=== PATIENT | male | born 1990 | race Caucasian/White ===

== ENCOUNTER 2018-10-17 14:42 | Emergency (ER) | payer MEDICAID, OTHER ==
[2018-10-17] MEDS ORDERED: Sodium Chloride 0.9% 1000 ML 1,000 ML ONE ×3 (14:53→15:27)
[2018-10-17] MEDS ORDERED: Sodium Chloride 0.9% 1000 ML 2,000 ML IV STA (14:54)
[2018-10-17] MEDS ORDERED: Zofran 4 MG/2 ML VIAL IV ONE ×2 (14:54→16:52)
[2018-10-17] MEDS ORDERED: Zofran 4 MG/2 ML VIAL ONE ×2 (14:57→16:53)
--- NOTE | 2018-10-17 15:03 | ERPHSYRPT ---
- History of Present Illness Time Seen by Provider: 10/17/18 14:49 Historian: patient Exam Limitations: no limitations Physician History: Pt states, he has been working outdoors all week, trimming trees. He tried to catch up with oral fluids, but started c/o left flank pain, and vomited several times since this morning, his urine is very little and dark today. He denies vomiting blood, or coffee ground material, no fever, chills, no diarrhea or other complaints. Timing/Duration: hour(s) (6) Activities at Onset: rest Quality: cramping, sharpness Abdominal Pain Onset Location: flank (left) Severity of Pain-Max: severe Severity of Pain-Current: severe Modifying Factors: Improves With: nothing Associated Symptoms: nausea, vomiting Previous symptoms: no prior history Allergies/Adverse Reactions: Sulfa (Sulfonamide Antibiotics) [Sulfa(Sulfonamide Antibiotics)] Allergy (Mild, Verified 10/17/18 15:01) Hives Home Medications: No Home Meds [No Home Meds] 1 [facility] 04/10/14 [History] Hx Tetanus, Diphtheria Vaccination/Date Given: Yes Hx Influenza Vaccination/Date Given: No Hx Pneumococcal Vaccination/Date Given: No - Review of Systems Constitutional: No Symptoms Ears, Nose, & Throat: No Symptoms Respiratory: No Symptoms Cardiac: No Symptoms Abdominal/Gastrointestinal: Abdominal Pain, Nausea, Vomiting Genitourinary Symptoms: No Symptoms Musculoskeletal: Myalgias Skin: No Symptoms Neurological: No Symptoms All Other Systems: Reviewed and Negative - Past Medical History Pertinent Past Medical History: Yes Neurological History: No Pertinent History ENT History: No Pertinent History Cardiac History: No Pertinent History Respiratory History: No Pertinent History Endocrine Medical History: No Pertinent History Musculoskeletal History: No Pertinent History GI Medical History: No Pertinent History History: No Pertinent History Psycho-Social History: Attention Deficit Disorder Male Reproductive Disorders: No Pertinent History - Past Surgical History Past Surgical History: Yes Neuro Surgical History: No Pertinent History Cardiac: No Pertinent History Respiratory: No Pertinent History Gastrointestinal: No Pertinent History Genitourinary: No Pertinent History Musculoskeletal: Orthopedic Surgery Male Surgical History: No Pertinent History Other Surgical History: HYPOSPADIAS REPAIR - Social History Smoking Status: Current every day smoker How long have you smoked: YRS Exposure to second hand smoke: No Drug Use: marijuana Patient Lives Alone: No Significant Family History: no pertinent family hx - Nursing Vital Signs Nursing Vital Signs: Initial Vital Signs Temperature 97.9 F 10/17/18 14:46 Pulse Rate 65 10/17/18 14:46 Blood Pressure 137/78 10/17/18 14:46 O2 Sat by Pulse Oximetry 98 10/17/18 14:46 Pain Scale Pain Intensity 8 - Physical Exam General Appearance: mild distress Eye Exam: eyes nml inspection Ears, Nose, Throat Exam: normal ENT inspection, pharynx normal, moist mucous membranes Neck Exam: normal inspection, non-tender, supple, No JVD Respiratory Exam: normal breath sounds, lungs clear, airway intact Cardiovascular Exam: regular rate/rhythm, normal heart sounds, normal peripheral pulses, No murmur, No edema Gastrointestinal/Abdomen Exam: soft, normal bowel sounds, tenderness (LUQ, ), No distention, No mass, No guarding, No ecchymosis, No rebound, No hernia, No organomegaly Back Exam: normal inspection, CVA tenderness (left) Extremity Exam: normal inspection, No calf tenderness, No pedal edema Neurologic Exam: alert, oriented x 3, cooperative, normal mood/affect Skin Exam: normal color, warm, dry, No rash, No petechiae, No cyanosis, No diaphoresis Lymphatic Exam: No adenopathy SpO2 Interpretation: normal O2 Delivery: Room Air - Course Nursing assessment & vital signs reviewed: Yes EKG Interpreted by Me: RATE (60/min), NORMAL AXIS, NORMAL INTERVALS, NORMAL QRS , NORMAL ST-T - CT Exams Abdomen/Pelvis CT Interpretation: Tele-radiologist Report, Other (distal left ureteral stone, 3 mm, mildly obstructing, with mild hydronephrosis.) Ordered Tests: Active Orders 24 hr Category Date Time Status EKG-ER Only STAT Care 10/17/18 14:54 Active IV Insertion STAT Care 10/17/18 14:54 Active ABDOMEN AND PELVIS W/0 CONTRAS [CT] Stat Exams 10/17/18 15:21 Taken AMYLASE Stat Lab 10/17/18 15:09 Completed CBC W DIFF Stat Lab 10/17/18 15:09 Completed CK-Creatinine Phosphokinase Stat Lab 10/17/18 15:09 Completed CMP Stat Lab 10/17/18 15:09 Completed CULTURE,URINE Stat Lab 10/17/18 15:11 Received LIPASE Stat Lab 10/17/18 15:09 Completed Lactic Acid Stat Lab 10/17/18 14:54 Completed Lactic Acid Stat Lab 10/17/18 17:04 Ordered TROPONIN Q3H Lab 10/17/18 15:09 Completed TROPONIN Q3H Lab 10/17/18 18:00 Ordered TROPONIN Q3H Lab 10/17/18 21:00 Ordered TROPONIN Q3H Lab 10/18/18 00:00 Ordered TROPONIN Q3H Lab 10/18/18 03:00 Ordered UA W/RFX UR CULTURE Stat Lab 10/17/18 15:11 Completed Urine Triage Profile Stat Lab 10/17/18 15:11 Completed Medication Summary Generic Name Dose Route Start Last Admin Trade Name Freasad PRN Reason Stop Dose Admin Tamsulosin HCl 0.4 mg 10/18/18 17:46 Flomax 0.4 Mg PO 10/18/18 17:47 NOW ONE Discontinued Medications Generic Name Dose Route Start Last Admin Trade Name Watson PRN Reason Stop Dose Admin Fentanyl Citrate 75 mcg 10/17/18 16:51 10/17/18 17:12 Sublimaze 100 Mcg/2 Ml IV 10/17/18 16:52 75 mcg STAT ONE Administration Fentanyl Citrate Confirm 10/17/18 16:54 Sublimaze 100 Mcg/2 Ml Administered 10/17/18 16:55 Dose 100 mcg .ROUTE .STK-MED ONE Sodium Chloride 2,000 mls @ 999 mls/hr 10/17/18 14:54 10/17/18 16:42 Sodium Chloride 0.9% 1000 Ml IV 10/17/18 16:54 Infused .Q2H1M STA Infusion Sodium Chloride Confirm 10/17/18 14:53 Sodium Chloride 0.9% 1000 Ml Administered 10/17/18 14:54 Dose 1,000 mls @ ud .ROUTE .STK-MED ONE Sodium Chloride Confirm 10/17/18 15:19 Sodium Chloride 0.9% 1000 Ml Administered 10/17/18 15:20 Dose 1,000 mls @ ud .ROUTE .STK-MED ONE Sodium Chloride 1,000 mls @ 999 mls/hr 10/17/18 15:24 10/17/18 16:31 Sodium Chloride 0.9% 1000 Ml IV 10/17/18 16:24 Infused .Q1H1M STA Infusion Sodium Chloride Confirm 10/17/18 15:27 Sodium Chloride 0.9% 1000 Ml Administered 10/17/18 15:28 Dose 1,000 mls @ ud .ROUTE .STK-MED ONE Insulin Human Regular Confirm 10/17/18 15:19 Novolin R Administered 10/17/18 15:20 Dose 5 unit .ROUTE .STK-MED ONE Ondansetron HCl 4 mg 10/17/18 14:54 10/17/18 15:01 Zofran 4 Mg/2 Ml Vial IV 10/17/18 14:55 4 mg STAT ONE Administration Ondansetron HCl Confirm 10/17/18 14:57 Zofran 4 Mg/2 Ml Vial Administered 10/17/18 14:58 Dose 4 mg .ROUTE .STK-MED ONE Ondansetron HCl 4 mg 10/17/18 16:52 10/17/18 17:12 Zofran 4 Mg/2 Ml Vial IV 10/17/18 16:53 4 mg STAT ONE Administration Ondansetron HCl Confirm 10/17/18 16:53 Zofran 4 Mg/2 Ml Vial Administered 10/17/18 16:54 Dose 4 mg .ROUTE .STK-MED ONE Potassium Bicarbonate 25 meq 10/17/18 17:46 K-Lyte 25 Meq PO 10/17/18 17:47 STAT ONE Lab/Rad Data: Laboratory Result Diagrams 10/17/18 15:09 10/17/18 15:09 Laboratory Results 10/17/18 10/17/18 10/17/18 Range/Units 15:11 15:11 15:09 WBC (4.0-10.5) K/mm3 RBC (4.1-5.6) M/mm3 Hgb (12.5-18.0) gm/dl Hct (42-50) % MCV (78-100) fl MCH (26-32) pg MCHC (32-36) g/dl RDW (11.5-14.0) % Plt Count (150-450) K/mm3 MPV (6-9.5) fl Gran % (36.0-66.0) % Eos # (Auto) (0-0.5) Absolute Lymphs (auto) (1.0-4.6) Absolute Monos (auto) (0.0-1.3) Lymphocytes % (24.0-44.0) % Monocytes % (0.0-12.0) % Eosinophils % (0.00-5.0) % Basophils % (0.0-0.4) % Absolute Granulocytes (1.4-6.9) Basophils # (0-0.4) Sodium (137-145) mmol/L Potassium (3.5-5.1) mmol/L Chloride (98-107) mmol/L Carbon Dioxide (22-30) mmol/L Anion Gap (5-15) MEQ/L BUN (9-20) mg/dL Creatinine (0.66-1.25) mg/dL Estimated GFR ML/MIN Glucose (74-106) mg/dL Lactic Acid (0.4-2.0) Calcium (8.4-10.2) mg/dL Total Bilirubin (0.2-1.3) mg/dL AST (17-59) U/L ALT (0-50) U/L Alkaline Phosphatase (38-126) U/L Creatine Kinase (55-170) U/L Troponin I < 0.012 (0.000-0.034) ng/mL Serum Total Protein (6.3-8.2) g/dL Albumin (3.5-5.0) g/dL Amylase (30-110) U/L Lipase (23-300) U/L Urine Color MARLEE (YELLOW) Urine Appearance SLIGHTLY CLOUDY (CLEAR) Urine pH 9.0 (5-6) Ur Specific [place] 1.030 (1.005-1.025) Urine Protein 100 (Negative) Urine Ketones MODERATE (NEGATIVE) Urine Blood SMALL (0-5) Tony/ul Urine Nitrite NEGATIVE (NEGATIVE) Urine Bilirubin SMALL (NEGATIVE) Urine Urobilinogen 2 (0-1) mg/dL Ur Leukocyte Esterase TRACE (NEGATIVE) Urine WBC (Auto) 6-10 (0-5) /HPF Urine RBC (Auto) 51-100 (0-2) /HPF U Epithel Cells (Auto) RARE (FEW) /HPF Urine Bacteria (Auto) FEW (NEGATIVE) /HPF Calcium Oxalate Crystal 11-25 (NEGATIVE) /HPF Urine Mucus (Auto) MODERATE (NEGATIVE) /HPF Urine Culture Reflexed YES (NO) Urine Glucose NEGATIVE (NEGATIVE) mg/dL Urine Opiates Level NEGATIVE (NEGATIVE) Ur Methadone NEGATIVE (NEGATIVE) Urine Barbiturates NEGATIVE (NEGATIVE) Ur Phencyclidine (PCP) NEGATIVE (NEGATIVE) Urine Amphetamine NEGATIVE (NEGATIVE) U Benzodiazepine Level NEGATIVE (NEGATIVE) Urine Cocaine NEGATIVE (NEGATIVE) Urine Marijuana (THC) POSITIVE (NEGATIVE) Slides for Path Review 10/17/18 10/17/18 10/17/18 Range/Units 15:09 15:09 14:54 WBC 13.5 H (4.0-10.5) K/mm3 RBC 4.99 (4.1-5.6) M/mm3 Hgb 16.5 (12.5-18.0) gm/dl Hct 44.5 (42-50) % MCV 89.2 (78-100) fl MCH 33.1 H (26-32) pg MCHC 37.1 H (32-36) g/dl RDW 12.7 (11.5-14.0) % Plt Count 214 (150-450) K/mm3 MPV 11.2 H (6-9.5) fl Gran % 70.6 H (36.0-66.0) % Eos # (Auto) 0.09 (0-0.5) Absolute Lymphs (auto) 2.32 (1.0-4.6) Absolute Monos (auto) 1.54 H (0.0-1.3) Lymphocytes % 17.2 L (24.0-44.0) % Monocytes % 11.4 (0.0-12.0) % Eosinophils % 0.7 (0.00-5.0) % Basophils % 0.1 (0.0-0.4) % Absolute Granulocytes 9.56 H (1.4-6.9) Basophils # 0.01 (0-0.4) Sodium 139 (137-145) mmol/L Potassium 3.3 L (3.5-5.1) mmol/L Chloride 106 (98-107) mmol/L Carbon Dioxide 22 (22-30) mmol/L Anion Gap 14.4 (5-15) MEQ/L BUN 11 (9-20) mg/dL Creatinine 1.04 (0.66-1.25) mg/dL Estimated GFR > 60.0 ML/MIN Glucose 127 H (74-106) mg/dL Lactic Acid 1.9 (0.4-2.0) Calcium 10.1 (8.4-10.2) mg/dL Total Bilirubin 1.20 (0.2-1.3) mg/dL AST 24 (17-59) U/L ALT 22 (0-50) U/L Alkaline Phosphatase 108 (38-126) U/L Creatine Kinase 212 H (55-170) U/L Troponin I (0.000-0.034) ng/mL Serum Total Protein 7.8 (6.3-8.2) g/dL Albumin 4.6 (3.5-5.0) g/dL Amylase 65 (30-110) U/L Lipase 85 (23-300) U/L Urine Color (YELLOW) Urine Appearance (CLEAR) Urine pH (5-6) Ur Specific Neb[place] (1.005-1.025) Urine Protein (Negative) Urine Ketones (NEGATIVE) Urine Blood (0-5) Tony/ul Urine Nitrite (NEGATIVE) Urine Bilirubin (NEGATIVE) Urine Urobilinogen (0-1) mg/dL Ur Leukocyte Esterase (NEGATIVE) Urine WBC (Auto) (0-5) /HPF Urine RBC (Auto) (0-2) /HPF U Epithel Cells (Auto) (FEW) /HPF Urine Bacteria (Auto) (NEGATIVE) /HPF Calcium Oxalate Crystal (NEGATIVE) /HPF Urine Mucus (Auto) (NEGATIVE) /HPF Urine Culture Reflexed (NO) Urine Glucose (NEGATIVE) mg/dL Urine Opiates Level (NEGATIVE) Ur Methadone (NEGATIVE) Urine Barbiturates (NEGATIVE) Ur Phencyclidine (PCP) (NEGATIVE) Urine Amphetamine (NEGATIVE) U Benzodiazepine Level (NEGATIVE) Urine Cocaine (NEGATIVE) Urine Marijuana (THC) (NEGATIVE) Slides for Path Review YES - Progress Progress: improved Progress Note: 10/17/18 17:50 Pt feels better after IV saline bolus ( 2000 ml), Fentanyl and Zofran IV, afebrile, stable, he was also started on Flomax, and given 25 meq K-Lyte. He is being discharged to rest x 1-2 days, drink plenty of fluids, and follow up with his physician in 2-3 days. Counseled pt/family regarding: lab results, diagnosis, need for follow-up, rad results - Departure Departure Disposition: Home Clinical Impression: Ureteral stone with hydronephrosis Condition: Stable Critical Care Time: No Instructions: Kidney Stones (DC), Renal Colic (DC) Additional Instructions: Rest x 2-3 days, drink plenty of fluids, and follow up with your physician in 2- 3 days, strain every urine! Return if severe pain, vomiting, fever> 101 F! Forms: Work/School Release Form Prescriptions: Hydrocodone/APAP 5-325 Tab^^^ [[place] 5-325 Tablet^^^] 1 tab PO Q6HPRN PRN #10 tablet MDD 6 PRN Reason: Pain Ondansetron ODT 4 MG [Zofran Odt 4 mg] 4 mg PO Q6H PRN PRN #10 tab.rapdis PRN Reason: Nausea/Vomiting Tamsulosin HCl 0.4 mg [Flomax 0.4 MG] 0.4 mg PO DAILY #5 cap
[2018-10-17 15:04] LABS: Lactic Acid 1.9 (0.4-2.0)
[2018-10-17] MEDS ORDERED: NovoLIN R ONE (15:19)
[2018-10-17 15:22] LABS: ALBUMIN 4.6 g/dL (3.5-5.0); ALKALINE PHOSPHATASE 108 U/L (38-126); AMYLASE 65 U/L (30-110); ANION GAP 14.4 MEQ/L (5-15); BLOOD UREA NITROGEN 11 mg/dL (9-20); CHLORIDE 106 mmol/L (98-107); CK-Creatinine Phosphokinase 212 U/L (55-170); Calcium 10.1 mg/dL (8.4-10.2); Carbon Dioxide 22 mmol/L (22-30); Creatinine 1 1.04 mg/dL (0.66-1.25); Glucose 127 mg/dL (74-106); LIPASE 85 U/L (23-300); Potassium 3.3 mmol/L (3.5-5.1); SGOT/AST 24 U/L (17-59); SGPT/ALT 22 U/L (0-50); SODIUM 139 mmol/L (137-145); Total Protein 7.8 g/dL (6.3-8.2)
[2018-10-17 15:24] LABS: BASOPHIL % 0.1 % (0.0-0.4); Basophil (Absolute #) 0.01 (0-0.4); Eosinophil % 0.7 % (0.00-5.0); Eosinophil (Absolute #) 0.09 (0-0.5); Granulocyte Absolute (ANC) 9.56 (1.4-6.9); Granulocytes % 70.6 % (36.0-66.0); Hematocrit 44.5 % (42-50); Hemoglobin 16.5 gm/dl (12.5-18.0); Lymphocyte (Absolute #) 2.32 (1.0-4.6); Lymphocytes % 17.2 % (24.0-44.0); Mean Cell Volume 89.2 fl (78-100); Mean Corpuscular Hemoglobin 33.1 pg (26-32); Mean Corpuscular Hgb Concent. 37.1 g/dl (32-36); Mean Platelet Volume 11.2 fl (6-9.5); Monocyte (Absolute #) 1.54 (0.0-1.3); Monocytes % 11.4 % (0.0-12.0); Platelet Count 214 K/mm3 (150-450); Red Blood Count 4.99 M/mm3 (4.1-5.6); Red Cell Distribution Width 12.7 % (11.5-14.0); White Blood Count 13.5 K/mm3 (4.0-10.5)
[2018-10-17] MEDS ORDERED: Sodium Chloride 0.9% 1000 ML 1,000 ML IV STA (15:24)
[2018-10-17 15:30] LABS: Appearance SLIGHTLY CLOUDY (CLEAR); Bacteria FEW /HPF (NEGATIVE); Bilirubin SMALL (NEGATIVE); Blood SMALL Ery/ul (0-5); Epithelial Cells RARE /HPF (FEW); Glucose NEGATIVE (NEGATIVE); Ketones MODERATE (NEGATIVE); Leukocyte Esterase TRACE (NEGATIVE); Mucus MODERATE /HPF (NEGATIVE); Nitrite NEGATIVE (NEGATIVE); Protein,Urine Dip 100 (Negative); RBC 51-100 /HPF (0-2); Urobilinogen 2 mg/dL (0-1)
[2018-10-17 15:40] LABS: Slide Review 1 YES
[2018-10-17 15:42] LABS: Amphetamine,Urine NEGATIVE (NEGATIVE); Barbiturate,Urine NEGATIVE (NEGATIVE); Benzodiazepine,Urine NEGATIVE (NEGATIVE); Cocaine,Urine NEGATIVE (NEGATIVE); Methadone,Urine NEGATIVE (NEGATIVE); Opiate,Urine NEGATIVE (NEGATIVE); PCP,Urine NEGATIVE (NEGATIVE); THC,Urine POSITIVE (NEGATIVE)
[2018-10-17] MEDS ORDERED: SUBLIMAZE 100 MCG/2 ML IV ONE (16:51)
[2018-10-17] MEDS ORDERED: SUBLIMAZE 100 MCG/2 ML ONE (16:54)
[2018-10-17] MEDS ORDERED: K-LYTE 25 MEQ PO ONE (17:46)
[2018-10-17] MEDS ORDERED: Flomax 0.4 MG ONE (17:51)
[2018-10-17] MEDS ORDERED: K-LYTE 25 MEQ ONE (17:51)
[2018-10-17] MEDS ORDERED: NORCO 5/325 MG PO ONE (17:55)
[2018-10-17] MEDS ORDERED: NORCO 5/325 MG ONE (17:58)
[2018-10-17 18:11] VITALS: BP 110/72; PULSE 61; O2SAT 100
--- NOTE | 2018-10-17 21:55 | XRAY ---
Indication: Left flank pain with nausea and vomiting. Heat stroke. Multiple contiguous axial images obtained through the abdomen and pelvis without contrast as ordered. Comparison: August 31, 2010. Lung bases are clear. Heart is not enlarged. Noncontrasted stomach and bowel loops appear nonobstructed. Normal appendix. New 3 mm distal left ureter calculus just proximal to the UVJ. Proximal left ureter is prominent and there is mild hydronephrosis consistent with partial obstructive uropathy. No free fluid/air. Remaining liver, gallbladder, pancreas, spleen, adrenal glands, right kidney, right ureter, bladder, and aorta appear unremarkable for noncontrast exam. Osseous structures intact. Impression: 1. 3 mm distal left ureter calculus producing partial obstruction. 2. Remaining CT abdomen/pelvis without contrast exam is negative. Comment: Preliminary interpretation was made by [facility]. No critical discrepancy. CTDI 10.48
[2018-10-18] MEDS ORDERED: Flomax 0.4 MG PO ONE (17:46)
== END 2018-10-17 18:10 | disposition home or self-care (01) ==
LOC: ED 14:42
DX: N13.2 Hydronephrosis with renal and ureteral calculous obstruction (principal)
CPT/HCPCS: 36000; 36415; 74176; 80053; 80307; 81001; 82150; 82550; 83605; 83690; 84484; 85025; 87086; 93005; 96360; 96374; 96375; 96376; 99285; J2405; J3010; A9270-GY

== ENCOUNTER 2019-01-19 18:18 | Emergency (ER) | payer MEDICAID ==
[2019-01-19] MEDS ORDERED: Sodium Chloride 0.9% 1000 ML 1,000 ML IV STA ×2 (18:36→19:19)
[2019-01-19] MEDS ORDERED: PROTONIX 40 MG IV IV ONE ×2 (18:36→18:51)
[2019-01-19] MEDS ORDERED: BENADRYL 50 MG/ML IV ONE (18:36)
[2019-01-19] MEDS ORDERED: MORPHINE SULFATE 4 MG INJ IV ONE (18:36)
--- NOTE | 2019-01-19 18:41 | ERPHSYRPT ---
- History of Present Illness Time Seen by Provider: 01/19/19 18:25 Historian: patient, EMS Exam Limitations: no limitations Patient Subjective Stated Complaint: pt co n/v today for thn 10 times with pain to abd , no fever Triage Nursing Assessment: pt arrived per ambulance, alert, resp easy, skin w/d/ p, abd soft with bs heard, tender to touch Physician History: Patient began having generalized than periumbilical abdominal pain three weeks ago. Patient was able to work with his symptoms. Patient then became worse on 01/18/2019 with recurrent vomiting today at least ten times with increasing pain in the abdomen. Patient was able to work today also. Timing/Duration: day(s) (1), week(s) (3 weeks ago began having symptoms), worse Activities at Onset: none Quality: burning Abdominal Pain Onset Location: periumbilical Pain Radiation: no radiation Severity of Pain-Max: severe Severity of Pain-Current: severe Modifying Factors: Improves With: nothing Associated Symptoms: nausea, vomiting, No back, No chest pain, No diaphoresis, No diarrhea, No fever/chills, No fatigue, No headache, No heartburn, No loss of appetite, No neck pain, No rash, No shortness of breath, No syncope, No testicular pain, No weakness Previous symptoms: no prior history Allergies/Adverse Reactions: Sulfa (Sulfonamide Antibiotics) [Sulfa(Sulfonamide Antibiotics)] Allergy (Mild, Verified 01/19/19 18:25) Hives Home Medications: No Home Meds [No Home Meds] 1 [facility] UD 04/10/14 [History] Hx Tetanus, Diphtheria Vaccination/Date Given: No Hx Influenza Vaccination/Date Given: No Hx Pneumococcal Vaccination/Date Given: No Immunizations Up to Date: Yes - Review of Systems Constitutional: No Fever, No Chills, No Fatigue Eyes: No Eye Pain, No Vision Changes Ears, Nose, & Throat: No Mouth Pain, No Hoarse, No Painful Swallowing Respiratory: No Cough, No Dyspnea Cardiac: No Chest Pain, No Edema, No Palpitations, No Syncope Abdominal/Gastrointestinal: Abdominal Pain, Nausea, Vomiting, No Diarrhea, No Constipation, No Hematemesis, No Hematochezia, No Melena Genitourinary Symptoms: No Dysuria, No Frequency, No Hematuria, No Flank Pain, No Testicle Pain Musculoskeletal: No Back Pain, No Neck Pain Skin: No Pruritis, No Rash Neurological: No Focal Weakness, No Lethargy, No Parasthesia, No Tremors Psychological: No Anxiety Endocrine: No Hair Changes, No Excessive Sweating Hematologic/Lymphatic: No Easy Bleeding, No Easy Bruising All Other Systems: Reviewed and Negative - Past Medical History Pertinent Past Medical History: Yes Neurological History: No Pertinent History ENT History: No Pertinent History Cardiac History: No Pertinent History Respiratory History: No Pertinent History Endocrine Medical History: No Pertinent History Musculoskeletal History: No Pertinent History GI Medical History: No Pertinent History History: No Pertinent History Psycho-Social History: Attention Deficit Disorder Male Reproductive Disorders: No Pertinent History - Past Surgical History Past Surgical History: Yes Neuro Surgical History: No Pertinent History Cardiac: No Pertinent History Respiratory: No Pertinent History Gastrointestinal: No Pertinent History Genitourinary: No Pertinent History Musculoskeletal: Orthopedic Surgery Male Surgical History: No Pertinent History Other Surgical History: HYPOSPADIAS REPAIR - Social History Smoking Status: Current every day smoker How long have you smoked: YRS Exposure to second hand smoke: Yes Drug Use: marijuana Patient Lives Alone: Yes Significant Family History: no pertinent family hx - Nursing Vital Signs Nursing Vital Signs: Initial Vital Signs Temperature 97.4 F 01/19/19 18:19 Pulse Rate 60 01/19/19 18:19 Respiratory Rate 16 01/19/19 18:19 Blood Pressure 134/83 01/19/19 18:19 O2 Sat by Pulse Oximetry 97 01/19/19 18:19 Pain Scale Pain Intensity 5 - Physical Exam General Appearance: no apparent distress Eye Exam: PERRL/EOMI, eyes nml inspection, No scleral icterus Ears, Nose, Throat Exam: normal ENT inspection, pharynx normal, moist mucous membranes Neck Exam: normal inspection, non-tender, supple, full range of motion, No meningismus Respiratory Exam: normal breath sounds, lungs clear, airway intact, No respiratory distress, No accessory muscle use, No crackles/rales, No rhonchi, No wheezing, No stridor Cardiovascular Exam: regular rate/rhythm, normal heart sounds, normal peripheral pulses, capillary refill <2 sec Gastrointestinal/Abdomen Exam: soft, normal bowel sounds, No tenderness, No distention, No mass, No guarding, No pulsatile mass, No rebound, No hernia, No hepatomegaly, No organomegaly Back Exam: normal inspection, normal range of motion, No CVA tenderness, No vertebral tenderness, No rash Extremity Exam: normal inspection, normal range of motion, pelvis stable, No deformities, No brooks's sign Neurologic Exam: alert, oriented x 3, cooperative, vocational technical education director II-XII nml as tested, normal mood/affect, sensation nml, No motor deficits Skin Exam: normal color, warm, dry, No rash, No petechiae, No jaundice, No cyanosis SpO2 Interpretation: normal SpO2: 97 O2 Delivery: Room Air - Course Nursing assessment & vital signs reviewed: Yes EKG Interpreted by Me: RATE (52), Sinus James, NORMAL AXIS, NORMAL INTERVALS, NORMAL QRS, NORMAL ST-T, Other (no appreciable change in comparison to EKG from 10/17/2018) - CT Exams Abdomen/Pelvis CT Interpretation: Negative, Normal Appendix, Other (pper radiologist interpretation: Compared to 10/17/2018, normal appendicitis and negative CT abdomen and pelvis.) Ordered Tests: Active Orders 24 hr Category Date Time Status Top Bottom Attaching Machine Operator STAT Care 01/19/19 18:38 Active EKG-ER Only STAT Care 01/19/19 18:38 Active NPO (ED) STAT Care 01/19/19 18:36 Active ABDOMEN AND PELVIS W/0 CONTRAS [CT] Stat Exams 01/19/19 19:21 Taken AMYLASE Stat Lab 01/19/19 19:03 Completed CBC W DIFF Stat Lab 01/19/19 19:03 Completed CBC W DIFF Stat Lab 01/19/19 21:50 Completed CMP Stat Lab 01/19/19 19:03 Completed LIPASE Stat Lab 01/19/19 19:03 Completed Lactic Acid Stat Lab 01/19/19 18:36 Completed Lactic Acid Stat Lab 01/19/19 21:45 Completed PROTIME WITH INR Stat Lab 01/19/19 19:03 Completed TROPONIN Q3H Lab 01/19/19 19:03 Completed TROPONIN Q3H Lab 01/19/19 21:50 Received TROPONIN Q3H Lab 01/20/19 00:45 Ordered TROPONIN Q3H Lab 01/20/19 03:45 Ordered TROPONIN Q3H Lab 01/20/19 06:45 Ordered UA W/RFX UR CULTURE Stat Lab 01/19/19 18:37 Uncollected Medication Summary Discontinued Medications Generic Name Dose Route Start Last Admin Trade Name Freq PRN Reason Stop Dose Admin Diphenhydramine HCl 25 mg 01/19/19 18:36 01/19/19 18:54 Benadryl 50 Mg/Ml IV 01/19/19 18:37 25 mg STAT ONE Administration Diphenhydramine HCl Confirm 01/19/19 18:51 Benadryl 50 Mg/Ml Administered 01/19/19 18:52 Dose 50 mg .ROUTE .STK-MED ONE Sodium Chloride 1,000 mls @ 999 mls/hr 01/19/19 18:36 01/19/19 18:54 Sodium Chloride 0.9% 1000 Ml IV 01/19/19 19:36 999 mls/hr .Q1H1M STA Administration Sodium Chloride Confirm 01/19/19 18:52 Sodium Chloride 0.9% 1000 Ml Administered 01/19/19 18:53 Dose 1,000 mls @ ud .ROUTE .STK-MED ONE Sodium Chloride 1,000 mls @ 999 mls/hr 01/19/19 19:19 01/19/19 20:19 Sodium Chloride 0.9% 1000 Ml IV 01/19/19 20:19 999 mls/hr .Q1H1M STA Administration Sodium Chloride Confirm 01/19/19 20:18 Sodium Chloride 0.9% 1000 Ml Administered 01/19/19 20:19 Dose 1,000 mls @ ud .ROUTE .STK-MED ONE Morphine Sulfate 4 mg 01/19/19 18:36 Morphine Sulfate 4 Mg Inj IV 01/19/19 18:37 STAT ONE Morphine Sulfate Confirm 01/19/19 18:52 Morphine Sulfate 4 Mg Inj Administered 01/19/19 18:53 Dose 4 mg .ROUTE .STK-MED ONE Pantoprazole Sodium 40 mg 01/19/19 18:36 01/19/19 18:55 Protonix 40 Mg Iv IV 01/19/19 18:37 40 mg STAT ONE Administration Pantoprazole Sodium Confirm 01/19/19 18:51 Protonix 40 Mg Iv Administered 01/19/19 18:52 Dose 40 mg IV .STK-MED ONE Lab/Rad Data: Laboratory Result Diagrams 01/19/19 21:50 01/19/19 19:03 Laboratory Results 01/19/19 01/19/19 01/19/19 Range/Units 21:50 21:45 19:03 WBC 11.3 H (4.0-10.5) K/mm3 RBC 4.24 (4.1-5.6) M/mm3 Hgb 14.0 (12.5-18.0) gm/dl Hct 39.8 L (42-50) % MCV 93.9 (78-100) fl MCH 33.0 H (26-32) pg MCHC 35.2 (32-36) g/dl RDW 13.0 (11.5-14.0) % Plt Count 146 L (150-450) K/mm3 MPV 10.9 H (6-9.5) fl Gran % 87.8 H (36.0-66.0) % Eos # (Auto) 0.01 (0-0.5) Absolute Lymphs (auto) 0.84 L (1.0-4.6) Absolute Monos (auto) 0.52 (0.0-1.3) Lymphocytes % 7.4 L (24.0-44.0) % Monocytes % 4.6 (0.0-12.0) % Eosinophils % 0.1 (0.00-5.0) % Basophils % 0.1 (0.0-0.4) % Absolute Granulocytes 9.91 H (1.4-6.9) Basophils # 0.01 (0-0.4) PT (8.83-12.87) SECONDS INR (0.8-3.0) Sodium (137-145) mmol/L Potassium (3.5-5.1) mmol/L Chloride (98-107) mmol/L Carbon Dioxide (22-30) mmol/L Anion Gap (5-15) MEQ/L BUN (9-20) mg/dL Creatinine (0.66-1.25) mg/dL Estimated GFR ML/MIN Glucose (74-106) mg/dL Lactic Acid 1.8 (0.4-2.0) Calcium (8.4-10.2) mg/dL Total Bilirubin (0.2-1.3) mg/dL AST (17-59) U/L ALT (0-50) U/L Alkaline Phosphatase (38-126) U/L Troponin I < 0.012 (0.000-0.034) ng/mL Serum Total Protein (6.3-8.2) g/dL Albumin (3.5-5.0) g/dL Amylase (30-110) U/L Lipase (23-300) U/L 01/19/19 01/19/19 01/19/19 Range/Units 19:03 19:03 19:03 WBC 13.3 H (4.0-10.5) K/mm3 RBC 4.42 (4.1-5.6) M/mm3 Hgb 14.5 (12.5-18.0) gm/dl Hct 41.3 L (42-50) % MCV 93.4 (78-100) fl MCH 32.8 H (26-32) pg MCHC 35.1 (32-36) g/dl RDW 12.9 (11.5-14.0) % Plt Count 168 (150-450) K/mm3 MPV 11.0 H (6-9.5) fl Gran % 84.8 H (36.0-66.0) % Eos # (Auto) 0.01 (0-0.5) Absolute Lymphs (auto) 1.13 (1.0-4.6) Absolute Monos (auto) 0.87 (0.0-1.3) Lymphocytes % 8.5 L (24.0-44.0) % Monocytes % 6.5 (0.0-12.0) % Eosinophils % 0.1 (0.00-5.0) % Basophils % 0.1 (0.0-0.4) % Absolute Granulocytes 11.32 H (1.4-6.9) Basophils # 0.01 (0-0.4) PT 12.5 (8.83-12.87) SECONDS INR 1.10 (0.8-3.0) Sodium 142 (137-145) mmol/L Potassium 4.3 (3.5-5.1) mmol/L Chloride 104 (98-107) mmol/L Carbon Dioxide 27 (22-30) mmol/L Anion Gap 15.8 H (5-15) MEQ/L BUN 12 (9-20) mg/dL Creatinine 0.65 L (0.66-1.25) mg/dL Estimated GFR > 60.0 ML/MIN Glucose 133 H (74-106) mg/dL Lactic Acid (0.4-2.0) Calcium 9.7 (8.4-10.2) mg/dL Total Bilirubin 0.70 (0.2-1.3) mg/dL AST 30 (17-59) U/L ALT 25 (0-50) U/L Alkaline Phosphatase 87 (38-126) U/L Troponin I (0.000-0.034) ng/mL Serum Total Protein 7.4 (6.3-8.2) g/dL Albumin 4.5 (3.5-5.0) g/dL Amylase 52 (30-110) U/L Lipase 29 (23-300) U/L 01/19/19 Range/Units 18:36 WBC (4.0-10.5) K/mm3 RBC (4.1-5.6) M/mm3 Hgb (12.5-18.0) gm/dl Hct (42-50) % MCV (78-100) fl MCH (26-32) pg MCHC (32-36) g/dl RDW (11.5-14.0) % Plt Count (150-450) K/mm3 MPV (6-9.5) fl Gran % (36.0-66.0) % Eos # (Auto) (0-0.5) Absolute Lymphs (auto) (1.0-4.6) Absolute Monos (auto) (0.0-1.3) Lymphocytes % (24.0-44.0) % Monocytes % (0.0-12.0) % Eosinophils % (0.00-5.0) % Basophils % (0.0-0.4) % Absolute Granulocytes (1.4-6.9) Basophils # (0-0.4) PT (8.83-12.87) SECONDS INR (0.8-3.0) Sodium (137-145) mmol/L Potassium (3.5-5.1) mmol/L Chloride (98-107) mmol/L Carbon Dioxide (22-30) mmol/L Anion Gap (5-15) MEQ/L BUN (9-20) mg/dL Creatinine (0.66-1.25) mg/dL Estimated GFR ML/MIN Glucose (74-106) mg/dL Lactic Acid 2.4 H (0.4-2.0) Calcium (8.4-10.2) mg/dL Total Bilirubin (0.2-1.3) mg/dL AST (17-59) U/L ALT (0-50) U/L Alkaline Phosphatase (38-126) U/L Troponin I (0.000-0.034) ng/mL Serum Total Protein (6.3-8.2) g/dL Albumin (3.5-5.0) g/dL Amylase (30-110) U/L Lipase (23-300) U/L - Progress Progress: improved, re-examined Progress Note: 01/19/19 20:48 pain has resolved. No further nausea and vomiting. Patient has no abdominal pain on repeat examination 01/19/19 21:57 Patient feeling much better. No episodes of nausea and vomiting. patient has no abdominal pain a repeat examination with a soft abdomen and no CVA tenderness bilaterally. Patient had improvement of his lactic acid after IV hydration. Patient has no indication for inpatient admission as the CT scan was negative, multiple repeat abdominal examinations are benign and no significant abnormal lab work. Counseled pt/family regarding: lab results, diagnosis, need for follow-up, rad results - Departure Departure Disposition: Home Clinical Impression: Abdominal pain in male, Mild dehydration, Elevated lactic acid level, Elevated blood pressure reading without diagnosis of hypertension Nausea with vomiting, unspecified Qualifiers: Vomiting type: unspecified Vomiting Intractability: non-intractable Qualified Code(s): R11.2 - Nausea with vomiting, unspecified Condition: Good Critical Care Time: No Referrals: ATA WU NP [Primary Care Provider] - 01/20/19 DUSTIN MARTINEZ MD [ASSOCIATE STAFF] - 01/20/19 (General Surgeon for your reference) Instructions: Vomiting -- Adult, Nausea -- Adult, Acute Abdomen (Belly Pain), Adult (DC), Dehydration, Adult (DC), Upper GI Endoscopy (DC), DASH Diet Additional Instructions: Return immediately back to the emergency room if you have any worsening abdominal pain, recurrent nausea and vomiting, new fever, new back pain, or any other concerning signs or symptoms that were not present at today's emergency department visit for immediate reevaluation in the emergency department. Prescriptions: Promethazine HCl 25 mg [Phenergan 25 mg] 25 mg PO Q6H PRN PRN #12 tablet PRN Reason: Nausea
[2019-01-19] MEDS ORDERED: BENADRYL 50 MG/ML ONE (18:51)
[2019-01-19] MEDS ORDERED: MORPHINE SULFATE 4 MG INJ ONE (18:52)
[2019-01-19] MEDS ORDERED: Sodium Chloride 0.9% 1000 ML 1,000 ML ONE ×2 (18:52→20:18)
[2019-01-19 19:05] LABS: Absolute Neutrophil Ct (ANC) 11.32 (1.4-6.9); BASOPHIL % 0.1 % (0.0-0.4); Basophil (Absolute #) 0.01 (0-0.4); Eosinophil % 0.1 % (0.00-5.0); Eosinophil (Absolute #) 0.01 (0-0.5); Hematocrit 41.3 % (42-50); Hemoglobin 14.5 gm/dl (12.5-18.0); Lymphocyte (Absolute #) 1.13 (1.0-4.6); Lymphocytes % 8.5 % (24.0-44.0); Mean Cell Volume 93.4 fl (78-100); Mean Corpuscular Hemoglobin 32.8 pg (26-32); Mean Corpuscular Hgb Concent. 35.1 g/dl (32-36); Monocyte (Absolute #) 0.87 (0.0-1.3); Monocytes % 6.5 % (0.0-12.0); Neutrophil % 84.8 % (36.0-66.0); Platelet Count 168 K/mm3 (150-450); Red Blood Count 4.42 M/mm3 (4.1-5.6); Red Cell Distribution Width 12.9 % (11.5-14.0); White Blood Count 13.3 K/mm3 (4.0-10.5)
[2019-01-19 19:06] LABS: Lactic Acid 2.4 (0.4-2.0)
[2019-01-19 19:18] LABS: ALBUMIN 4.5 g/dL (3.5-5.0); ALKALINE PHOSPHATASE 87 U/L (38-126); AMYLASE 52 U/L (30-110); ANION GAP 15.8 MEQ/L (5-15); BLOOD UREA NITROGEN 12 mg/dL (9-20); CHLORIDE 104 mmol/L (98-107); Calcium 9.7 mg/dL (8.4-10.2); Carbon Dioxide 27 mmol/L (22-30); Creatinine 1 0.65 mg/dL (0.66-1.25); Glucose 133 mg/dL (74-106); LIPASE 29 U/L (23-300); Potassium 4.3 mmol/L (3.5-5.1); SGOT/AST 30 U/L (17-59); SGPT/ALT 25 U/L (0-50); SODIUM 142 mmol/L (137-145); Total Protein 7.4 g/dL (6.3-8.2)
[2019-01-19 19:22] LABS: INR 1.1 (0.8-3.0); PROTIME 12.5 SECONDS (8.83-12.87)
[2019-01-19 21:53] LABS: Absolute Neutrophil Ct (ANC) 9.91 (1.4-6.9); BASOPHIL % 0.1 % (0.0-0.4); Basophil (Absolute #) 0.01 (0-0.4); Eosinophil % 0.1 % (0.00-5.0); Eosinophil (Absolute #) 0.01 (0-0.5); Hematocrit 39.8 % (42-50); Lymphocyte (Absolute #) 0.84 (1.0-4.6); Lymphocytes % 7.4 % (24.0-44.0); Mean Cell Volume 93.9 fl (78-100); Mean Corpuscular Hgb Concent. 35.2 g/dl (32-36); Mean Platelet Volume 10.9 fl (6-9.5); Monocyte (Absolute #) 0.52 (0.0-1.3); Monocytes % 4.6 % (0.0-12.0); Neutrophil % 87.8 % (36.0-66.0); Platelet Count 146 K/mm3 (150-450); Red Blood Count 4.24 M/mm3 (4.1-5.6); White Blood Count 11.3 K/mm3 (4.0-10.5)
[2019-01-19 22:32] VITALS: BP 118/67; PULSE 94; O2SAT 99
--- NOTE | 2019-01-20 10:05 | XRAY ---
Indication: Abdomen pain, nausea, vomiting, and diarrhea. Multiple contiguous axial images obtained through the abdomen and pelvis without contrast as ordered. Comparison: October 17, 2018. Lung bases remain clear. Heart is not enlarged. Noncontrasted stomach and bowel loops appear nonobstructed. Normal appendix. No free fluid/air. Previous left ureteral calculus has passed. Remaining liver, gallbladder, pancreas, spleen, adrenal glands, kidneys, ureters, bladder, and aorta appear unremarkable for noncontrast exam. Osseous structures intact. No ventral/inguinal hernias. Impression: Negative CT abdomen/pelvis without contrast exam. CT DI 12.27
== END 2019-01-19 22:32 | disposition home or self-care (01) ==
LOC: ED 18:18
DX: R10.9 Unspecified abdominal pain (principal); E86.0 Dehydration; R03.0 Elevated blood-pressure reading, without diagnosis of hypertension; R11.2 Nausea with vomiting, unspecified
CPT/HCPCS: 36000; 36415; 74176; 80053; 82150; 83605; 83690; 84484; 85025; 85610; 93005; 93041; 96374; 96375; 99284; J1200; J2270

== ENCOUNTER 2019-09-23 19:38 | Emergency (ER) | payer SELFPAY ==
[2019-09-23] MEDS ORDERED: PROTONIX 40 MG IV IV ONE ×2 (20:09→20:14)
[2019-09-23] MEDS ORDERED: Hydromorphone 1 mg/ml Ampule IV ONE ×2 (20:09→23:38)
[2019-09-23] MEDS ORDERED: Sodium Chloride 0.9% 1000 ML 1,000 ML IV STA ×2 (20:09→20:12)
[2019-09-23] MEDS ORDERED: Zofran 4 MG/2 ML VIAL IV ONE ×2 (20:09→23:49)
[2019-09-23] MEDS ORDERED: Zofran 4 MG/2 ML VIAL ONE ×2 (20:14→23:48)
[2019-09-23] MEDS ORDERED: Hydromorphone 1 mg/ml Ampule ONE ×2 (20:15→23:48)
[2019-09-23] MEDS ORDERED: Sodium Chloride 0.9% 1000 ML 1,000 ML ONE ×2 (20:15→21:13)
[2019-09-23 20:39] LABS: Absolute Neutrophil Ct (ANC) 6.79 (1.4-6.9); BASOPHIL % 0.1 % (0.0-0.4); Basophil (Absolute #) 0.01 (0-0.4); Eosinophil % 0.5 % (0.00-5.0); Eosinophil (Absolute #) 0.05 (0-0.5); Hematocrit 44.2 % (42-50); Hemoglobin 15.4 gm/dl (12.5-18.0); Lymphocyte (Absolute #) 1.93 (1.0-4.6); Lymphocytes % 20.1 % (24.0-44.0); Mean Cell Volume 94.2 fl (78-100); Mean Corpuscular Hemoglobin 32.8 pg (26-32); Mean Corpuscular Hgb Concent. 34.8 g/dl (32-36); Mean Platelet Volume 10.9 fl (7.5-11.0); Monocyte (Absolute #) 0.83 (0.0-1.3); Monocytes % 8.6 % (0.0-12.0); Neutrophil % 70.7 % (36.0-66.0); Platelet Count 224 K/mm3 (150-450); Red Blood Count 4.69 M/mm3 (4.1-5.6); Red Cell Distribution Width 12.7 % (11.5-14.0); White Blood Count 9.6 K/mm3 (4.0-10.5)
[2019-09-23 20:45] LABS: INR 1.15 (0.8-3.0)
[2019-09-23 20:46] LABS: Amourphous Crystal FEW /HPF (NEGATIVE); Appearance CLOUDY (CLEAR); Bacteria RARE /HPF (NEGATIVE); Bilirubin NEGATIVE (NEGATIVE); Blood NEGATIVE Ery/ul (0-5); Epithelial Cells RARE /HPF (FEW); Glucose NEGATIVE (NEGATIVE); Ketones NEGATIVE (NEGATIVE); Leukocyte Esterase NEGATIVE (NEGATIVE); Mucus SLIGHT /HPF (NEGATIVE); Nitrite NEGATIVE (NEGATIVE); Protein,Urine Dip 30 (Negative); Urobilinogen 2 mg/dL (0-1)
[2019-09-23 20:50] LABS: ALBUMIN 4.8 g/dL (3.5-5.0); ALKALINE PHOSPHATASE 106 U/L (38-126); AMYLASE 61 U/L (30-110); ANION GAP 13.7 MEQ/L (5-15); BLOOD UREA NITROGEN 10 mg/dL (9-20); CHLORIDE 105 mmol/L (98-107); Carbon Dioxide 25 mmol/L (22-30); Creatinine 1 0.77 mg/dL (0.66-1.25); Glucose 151 mg/dL (74-106); LIPASE 69 U/L (23-300); Potassium 3.8 mmol/L (3.5-5.1); SGOT/AST 19 U/L (17-59); SGPT/ALT 14 U/L (0-50); SODIUM 140 mmol/L (137-145); Total Protein 7.9 g/dL (6.3-8.2)
[2019-09-23] MEDS ORDERED: solu-MEDROL 125 MG IV ONE (21:25)
[2019-09-23] MEDS ORDERED: BENADRYL 50 MG/ML IM ONE (21:26)
[2019-09-23] MEDS ORDERED: solu-MEDROL 125 MG ONE (21:27)
[2019-09-23] MEDS ORDERED: BENADRYL 50 MG/ML ONE (21:27)
--- NOTE | 2019-09-23 22:05 | XRAY ---
Indication: Chest pain. Comparison: June 05, 2010. Portable chest again demonstrates normal heart, lungs, and bony thorax.
--- NOTE | 2019-09-23 23:38 | ERPHSYRPT ---
- History of Present Illness Time Seen by Provider: 09/23/19 20:00 Historian: patient Exam Limitations: no limitations Patient Subjective Stated Complaint: pt states he has been vomiting for lst 2 days. states he vomits when he has a bm or when he eats greasy foods. states 2 days ago he ate pizza with a lot of garlic butter on it Triage Nursing Assessment: pt alert and oriented, answers questions approp. pt ambulatory with steady gait noted. respirations nonlabored with lungscta. abd soft, tender to light palpation. bowel sounds hypo. skin diaphoretic. Physician History: Patient is a 29-year-old white male with burning abdominal pain with associated nausea and vomiting and some diarrhea for several days. Timing/Duration: day(s) (3) Activities at Onset: none Quality: burning, cramping Abdominal Pain Onset Location: generalized abdomen Pain Radiation: no radiation Modifying Factors: Improves With: defecating, eating, vomiting Associated Symptoms: diaphoresis, diarrhea, nausea, vomiting Previous symptoms: no prior history Allergies/Adverse Reactions: shrimp Allergy (Severe, Verified 09/23/19 21:30) Difficulty Breathing throat swelling and difficulty breathing Sulfa (Sulfonamide Antibiotics) [Sulfa(Sulfonamide Antibiotics)] Allergy (Mild, Verified 09/23/19 20:10) Hives Home Medications: No Home Meds [No Home Meds] 1 [facility] UD 04/10/14 [History] Hx Tetanus, Diphtheria Vaccination/Date Given: Yes Hx Influenza Vaccination/Date Given: No Hx Pneumococcal Vaccination/Date Given: No Immunizations Up to Date: Yes Travel Risk - International Travel Have you traveled outside of the country in past 3 weeks: No - Coronavirus Screening Close contact with a COVID-19 positive Pt in past 14-21 Days: No - Past Medical History Pertinent Past Medical History: Yes Neurological History: No Pertinent History ENT History: No Pertinent History Cardiac History: No Pertinent History Respiratory History: No Pertinent History Endocrine Medical History: No Pertinent History Musculoskeletal History: No Pertinent History GI Medical History: No Pertinent History History: No Pertinent History Psycho-Social History: Attention Deficit Disorder Male Reproductive Disorders: No Pertinent History - Past Surgical History Past Surgical History: Yes Neuro Surgical History: No Pertinent History Cardiac: No Pertinent History Respiratory: No Pertinent History Gastrointestinal: No Pertinent History Genitourinary: No Pertinent History Musculoskeletal: Orthopedic Surgery Male Surgical History: No Pertinent History Other Surgical History: HYPOSPADIAS REPAIR - Social History Smoking Status: Current every day smoker How long have you smoked: 11 Exposure to second hand smoke: Yes Drug Use: marijuana Patient Lives Alone: No Significant Family History: no pertinent family hx - Nursing Vital Signs Nursing Vital Signs: Initial Vital Signs Temperature 97.7 F 09/23/19 19:52 Pulse Rate 57 L 09/23/19 19:52 Respiratory Rate 16 09/23/19 19:52 Blood Pressure 124/84 09/23/19 19:52 O2 Sat by Pulse Oximetry 97 09/23/19 19:52 Pain Scale Pain Intensity 8 - Physical Exam General Appearance: moderate distress, alert Eye Exam: PERRL/EOMI, eyes nml inspection Ears, Nose, Throat Exam: normal ENT inspection, pharynx normal, moist mucous membranes Neck Exam: normal inspection, non-tender, supple, full range of motion Respiratory Exam: normal breath sounds, lungs clear, No respiratory distress Cardiovascular Exam: regular rate/rhythm, normal heart sounds Gastrointestinal/Abdomen Exam: tenderness, guarding, No mass Male Genitalia Exam: normal genitalia Back Exam: normal inspection, normal range of motion, No CVA tenderness, No vertebral tenderness Extremity Exam: normal inspection, normal range of motion, pelvis stable Neurologic Exam: alert, oriented x 3, cooperative, normal mood/affect, nml cerebellar function, sensation nml, No motor deficits Skin Exam: normal color, warm, dry SpO2: 98 - Course Nursing assessment & vital signs reviewed: Yes EKG Interpreted by Me: RATE (51), Sinus Rhythm, NORMAL AXIS, NORMAL INTERVALS, NORMAL QRS, NORMAL ST-T - CT Exams Abdomen/Pelvis CT Interpretation: Negative Ordered Tests: Active Orders 24 hr Category Date Time Status EKG-ER Only STAT Care 09/23/19 20:09 Active IV Insertion STAT Care 09/23/19 20:09 Active ABDOMEN AND PELVIS W CONTRAST [CT] Stat Exams 09/23/19 20:10 Taken CHEST 1 VIEW (PORTABLE) Stat Exams 09/23/19 20:10 Completed AMYLASE Stat Lab 09/23/19 20:34 Completed BLOOD CULTURE Stat Lab 09/23/19 20:34 Received CBC W DIFF Stat Lab 09/23/19 20:34 Completed CMP Stat Lab 09/23/19 20:34 Completed LIPASE Stat Lab 09/23/19 20:34 Completed Lactic Acid Stat Lab 09/23/19 21:49 Completed PROTIME WITH INR Stat Lab 09/23/19 20:34 Completed TROPONIN Q3H Lab 09/23/19 20:34 Completed TROPONIN Q3H Lab 09/23/19 23:15 Ordered TROPONIN Q3H Lab 09/24/19 02:15 Ordered TROPONIN Q3H Lab 09/24/19 05:15 Ordered TROPONIN Q3H Lab 09/24/19 08:15 Ordered UA W/RFX UR CULTURE Stat Lab 09/23/19 20:34 Completed Medication Summary Generic Name Dose Route Start Last Admin Trade Name Freq PRN Reason Stop Dose Admin Hydrocodone Bitart/Acetaminophen 2 tab 09/23/19 23:40 [place] 5/325 Mg PO 09/23/19 23:41 SENT HOME W/ PATIENT ONE Hydromorphone HCl 1 mg 09/23/19 23:38 Hydromorphone 1 Mg/Ml Ampule IV 09/23/19 23:39 STAT ONE Pantoprazole Sodium 40 mg 09/23/19 23:39 Protonix 40mg Tablet PO 09/23/19 23:40 STAT ONE Discontinued Medications Generic Name Dose Route Start Last Admin Trade Name Freq PRN Reason Stop Dose Admin Diphenhydramine HCl 50 mg 09/23/19 21:26 09/23/19 21:29 Benadryl 50 Mg/Ml IM 09/23/19 21:27 50 mg STAT ONE Administration Diphenhydramine HCl Confirm 09/23/19 21:27 Benadryl 50 Mg/Ml Administered 09/23/19 21:28 Dose 50 mg .ROUTE .STK-MED ONE Hydromorphone HCl 1 mg 09/23/19 20:09 09/23/19 20:35 Hydromorphone 1 Mg/Ml Ampule IV 09/23/19 20:10 1 mg STAT ONE Administration Hydromorphone HCl Confirm 09/23/19 20:15 Hydromorphone 1 Mg/Ml Ampule Administered 09/23/19 20:16 Dose 1 mg .ROUTE .STK-MED ONE Sodium Chloride 1,000 mls @ 999 mls/hr 09/23/19 20:09 09/23/19 21:31 Sodium Chloride 0.9% 1000 Ml IV 09/23/19 21:09 Infused .Q1H1M STA Infusion Sodium Chloride 1,000 mls @ 999 mls/hr 09/23/19 20:12 09/23/19 21:14 Sodium Chloride 0.9% 1000 Ml IV 09/23/19 21:12 999 mls/hr .Q1H1M STA Administration Sodium Chloride Confirm 09/23/19 20:15 Sodium Chloride 0.9% 1000 Ml Administered 09/23/19 20:16 Dose 1,000 mls @ ud .ROUTE .STK-MED ONE Sodium Chloride Confirm 09/23/19 21:13 Sodium Chloride 0.9% 1000 Ml Administered 09/23/19 21:14 Dose 1,000 mls @ ud .ROUTE .STK-MED ONE Methylprednisolone Sodium Succinate 125 mg 09/23/19 21:25 09/23/19 21:29 Solu-Medrol 125 Mg IV 09/23/19 21:26 125 mg STAT ONE Administration Methylprednisolone Sodium Succinate Confirm 09/23/19 21:27 Solu-Medrol 125 Mg Administered 09/23/19 21:28 Dose 125 mg .ROUTE .STK-MED ONE Ondansetron HCl 4 mg 09/23/19 20:09 09/23/19 20:34 Zofran 4 Mg/2 Ml Vial IV 09/23/19 20:10 4 mg STAT ONE Administration Ondansetron HCl Confirm 09/23/19 20:14 Zofran 4 Mg/2 Ml Vial Administered 09/23/19 20:15 Dose 4 mg .ROUTE .STK-MED ONE Pantoprazole Sodium 40 mg 09/23/19 20:09 09/23/19 20:35 Protonix 40 Mg Iv IV 09/23/19 20:10 40 mg STAT ONE Administration Pantoprazole Sodium Confirm 09/23/19 20:14 Protonix 40 Mg Iv Administered 09/23/19 20:15 Dose 40 mg IV .STK-MED ONE Lab/Rad Data: Laboratory Result Diagrams 09/23/19 20:34 09/23/19 20:34 Laboratory Results 09/23/19 09/23/19 09/23/19 Range/Units 21:49 20:34 20:34 WBC (4.0-10.5) K/mm3 RBC (4.1-5.6) M/mm3 Hgb (12.5-18.0) gm/dl Hct (42-50) % MCV (78-100) fl MCH (26-32) pg MCHC (32-36) g/dl RDW (11.5-14.0) % Plt Count (150-450) K/mm3 MPV (7.5-11.0) fl Gran % (36.0-66.0) % Eos # (Auto) (0-0.5) Absolute Lymphs (auto) (1.0-4.6) Absolute Monos (auto) (0.0-1.3) Lymphocytes % (24.0-44.0) % Monocytes % (0.0-12.0) % Eosinophils % (0.00-5.0) % Basophils % (0.0-0.4) % Absolute Granulocytes (1.4-6.9) Basophils # (0-0.4) PT (8.83-12.87) SECONDS INR (0.8-3.0) Sodium (137-145) mmol/L Potassium (3.5-5.1) mmol/L Chloride (98-107) mmol/L Carbon Dioxide (22-30) mmol/L Anion Gap (5-15) MEQ/L BUN (9-20) mg/dL Creatinine (0.66-1.25) mg/dL Estimated GFR ML/MIN Glucose (74-106) mg/dL Lactic Acid 1.6 (0.4-2.0) Calcium (8.4-10.2) mg/dL Total Bilirubin (0.2-1.3) mg/dL AST (17-59) U/L ALT (0-50) U/L Alkaline Phosphatase (38-126) U/L Troponin I < 0.012 (0.000-0.034) ng/mL Serum Total Protein (6.3-8.2) g/dL Albumin (3.5-5.0) g/dL Amylase (30-110) U/L Lipase (23-300) U/L Urine Color YELLOW (YELLOW) Urine Appearance CLOUDY (CLEAR) Urine pH 6.0 (5-6) Ur Specific [place] 1.020 (1.005-1.025) Urine Protein 30 (Negative) Urine Ketones NEGATIVE (NEGATIVE) Urine Blood NEGATIVE (0-5) Tony/ul Urine Nitrite NEGATIVE (NEGATIVE) Urine Bilirubin NEGATIVE (NEGATIVE) Urine Urobilinogen 2 (0-1) mg/dL Ur Leukocyte Esterase NEGATIVE (NEGATIVE) Urine WBC (Auto) 3-5 (0-5) /HPF Urine RBC (Auto) 3-5 (0-2) /HPF U Epithel Cells (Auto) RARE (FEW) /HPF Urine Bacteria (Auto) RARE (NEGATIVE) /HPF Amorphous Crystals FEW (NEGATIVE) /HPF Urine Mucus (Auto) SLIGHT (NEGATIVE) /HPF Urine Culture Reflexed NO (NO) Urine Glucose NEGATIVE (NEGATIVE) mg/dL 09/23/19 09/23/19 09/23/19 Range/Units 20:34 20:34 20:34 WBC 9.6 (4.0-10.5) K/mm3 RBC 4.69 (4.1-5.6) M/mm3 Hgb 15.4 (12.5-18.0) gm/dl Hct 44.2 (42-50) % MCV 94.2 (78-100) fl MCH 32.8 H (26-32) pg MCHC 34.8 (32-36) g/dl RDW 12.7 (11.5-14.0) % Plt Count 224 (150-450) K/mm3 MPV 10.9 (7.5-11.0) fl Gran % 70.7 H (36.0-66.0) % Eos # (Auto) 0.05 (0-0.5) Absolute Lymphs (auto) 1.93 (1.0-4.6) Absolute Monos (auto) 0.83 (0.0-1.3) Lymphocytes % 20.1 L (24.0-44.0) % Monocytes % 8.6 (0.0-12.0) % Eosinophils % 0.5 (0.00-5.0) % Basophils % 0.1 (0.0-0.4) % Absolute Granulocytes 6.79 (1.4-6.9) Basophils # 0.01 (0-0.4) PT 13.0 H (8.83-12.87) SECONDS INR 1.15 (0.8-3.0) Sodium 140 (137-145) mmol/L Potassium 3.8 (3.5-5.1) mmol/L Chloride 105 (98-107) mmol/L Carbon Dioxide 25 (22-30) mmol/L Anion Gap 13.7 (5-15) MEQ/L BUN 10 (9-20) mg/dL Creatinine 0.77 (0.66-1.25) mg/dL Estimated GFR > 60.0 ML/MIN Glucose 151 H (74-106) mg/dL Lactic Acid (0.4-2.0) Calcium 10.0 (8.4-10.2) mg/dL Total Bilirubin 0.80 (0.2-1.3) mg/dL AST 19 (17-59) U/L ALT 14 (0-50) U/L Alkaline Phosphatase 106 (38-126) U/L Troponin I (0.000-0.034) ng/mL Serum Total Protein 7.9 (6.3-8.2) g/dL Albumin 4.8 (3.5-5.0) g/dL Amylase 61 (30-110) U/L Lipase 69 (23-300) U/L Urine Color (YELLOW) Urine Appearance (CLEAR) Urine pH (5-6) Ur Specific [place] (1.005-1.025) Urine Protein (Negative) Urine Ketones (NEGATIVE) Urine Blood (0-5) Tony/ul Urine Nitrite (NEGATIVE) Urine Bilirubin (NEGATIVE) Urine Urobilinogen (0-1) mg/dL Ur Leukocyte Esterase (NEGATIVE) Urine WBC (Auto) (0-5) /HPF Urine RBC (Auto) (0-2) /HPF U Epithel Cells (Auto) (FEW) /HPF Urine Bacteria (Auto) (NEGATIVE) /HPF Amorphous Crystals (NEGATIVE) /HPF Urine Mucus (Auto) (NEGATIVE) /HPF Urine Culture Reflexed (NO) Urine Glucose (NEGATIVE) mg/dL - Progress Progress: improved - Departure Departure Disposition: Home Clinical Impression: Gastritis Condition: Stable Critical Care Time: No Referrals: EDWIN MARQUEZ MD [Primary Care Provider] - Instructions: Gastric Ulcer (DC) Prescriptions: Hydrocodone/APAP 5-325 Tab^^^ [[place] 5-325 Tablet^^^] 1 tab PO Q6HPRN PRN #10 tablet MDD 6 PRN Reason: Pain Ondansetron ODT 4 MG [Zofran Odt 4 mg] 4 mg PO Q6H PRN PRN #10 tab.rapdis PRN Reason: Vomiting PANTOPRAZOLE 40 mg Tablet [Protonix 40MG Tablet] 40 mg PO QAM 30 Days #30 tab
[2019-09-23] MEDS ORDERED: Protonix 40MG Tablet PO ONE (23:39)
[2019-09-23] MEDS ORDERED: NORCO 5/325 MG PO ONE (23:40)
[2019-09-24] MEDS ORDERED: Protonix 40MG Tablet ONE (00:06)
[2019-09-24] MEDS ORDERED: NORCO 5/325 MG ONE (00:06)
[2019-09-24 00:41] VITALS: BP 100/58; PULSE 74; O2SAT 97
--- NOTE | 2019-09-24 07:07 | XRAY ---
Indication: Abdomen pain and nausea. Multiple contiguous axial images obtained through the chest using 80 cc Isovue 370 contrast only. The ordering clinician premedicated the patient due to known iodine shrimp/shellfish allergy. Exam was performed uneventfully. Comparison: January 19, 2019. Lung bases are clear. Heart is not enlarged. Noncontrasted stomach and bowel loops appear nonobstructed. Normal appendix. No free fluid/air. Liver is enlarged measuring 22 cm. Remaining gallbladder, pancreas, spleen, adrenal glands, kidneys, ureters, bladder, and aorta appear unremarkable. No pathologic retroperitoneal lymphadenopathy. Osseous structures intact. Impression: Hepatomegaly. Remaining CT abdomen/pelvis with contrast exam is negative. Comment: Preliminary interpretation was made by [facility]. No critical discrepancy.
== END 2019-09-24 00:30 | disposition home or self-care (01) ==
LOC: ED 19:38
DX: K29.70 Gastritis, unspecified, without bleeding (principal); Z72.0 Tobacco use
CPT/HCPCS: 36000; 36415; 71045; 74177; 80053; 81001; 82150; 83605; 83690; 84484; 85025; 85610; 87040; 93005; 96360; 96361; 96374; 96375; 96376; 99285; J1170; J1200; J2405; J2930; A9270-GY

== ENCOUNTER 2020-07-26 20:40 | Emergency (ER) | payer OTHER ==
[2020-07-26 21:13] VITALS: O2SAT 97
[2020-07-26] MEDS ORDERED: TORAdol 30 mg Injection IM ONE (21:13)
[2020-07-26] MEDS ORDERED: TORAdol 30 mg Injection ONE (22:10)
--- NOTE | 2020-07-26 22:12 | ERPHSYRPT ---
- History of Present Illness Time Seen by Provider: 07/26/20 21:00 Source: patient Exam Limitations: no limitations Patient Subjective Stated Complaint: pt states "I think I have a buldging disc." Triage Nursing Assessment: pt ambulated into er; pt is axo x4; c/o back pain; pt states 7/10 pain; pt states that he was bending down and had a sharp pain in my back; pt states that the pain feels like someone is punching him in the back; pt states that the pain shots down his left leg; pt has tenderness to lower back with palpation; pt has limited ROM; clear lung sounds in all lobes; vitals wnl Physician History: Patient is a 30-year-old male presents to emergency department with complaints of low back pain. Patient states he was bending over earlier today and felt a sharp pain in his back. Patient believes he may have slipped disc. Pain radiated down his left leg. Pain described as a sharp sensation. No change in bowel bladder function. No saddle anesthesia. No recent back procedures. No fever. Symptoms are mild to moderate in intensity. Movement reproduces symptoms. Laying flat improves symptoms. Patient voices no other complaints or concerns at this time. Timing/Duration: today Severity: moderate Modifying Factors: Improves With: nothing Associated Symptoms: denies symptoms Allergies/Adverse Reactions: shrimp Allergy (Severe, Verified 07/26/20 20:56) Difficulty Breathing throat swelling and difficulty breathing Sulfa (Sulfonamide Antibiotics) [Sulfa(Sulfonamide Antibiotics)] Allergy (Mild, Verified 07/26/20 20:56) Hives meperidine [From Demerol] Allergy (Verified 07/26/20 20:56) Hx Tetanus, Diphtheria Vaccination/Date Given: Yes Hx Influenza Vaccination/Date Given: Yes Hx Pneumococcal Vaccination/Date Given: No Immunizations Up to Date: Yes Travel Risk - International Travel Have you traveled outside of the country in past 3 weeks: No - Coronavirus Screening Are you exhibiting any of the following symptoms?: No Close contact with a COVID-19 positive Pt in past 14-21 Days: No - Vaccine Status Have you recieved a Covid-19 vaccination: No - Review of Systems Constitutional: No Symptoms, No Fever, No Chills Eyes: No Symptoms Ears, Nose, & Throat: No Symptoms Respiratory: No Symptoms, No Cough, No Dyspnea Cardiac: No Symptoms, No Chest Pain, No Edema, No Syncope Abdominal/Gastrointestinal: No Symptoms, No Abdominal Pain, No Nausea, No Vomiting, No Diarrhea Genitourinary Symptoms: No Symptoms, No Dysuria Musculoskeletal: No Symptoms, No Back Pain, No Neck Pain Skin: No Symptoms, No Rash Neurological: No Symptoms, No Dizziness, No Focal Weakness, No Sensory Changes Psychological: No Symptoms Endocrine: No Symptoms Hematologic/Lymphatic: No Symptoms Immunological/Allergic: No Symptoms All Other Systems: Reviewed and Negative - Past Medical History Pertinent Past Medical History: No Neurological History: No Pertinent History ENT History: No Pertinent History Cardiac History: No Pertinent History Respiratory History: No Pertinent History Endocrine Medical History: No Pertinent History Musculoskeletal History: No Pertinent History GI Medical History: No Pertinent History History: No Pertinent History Psycho-Social History: Attention Deficit Disorder Male Reproductive Disorders: No Pertinent History - Past Surgical History Past Surgical History: Yes Neuro Surgical History: No Pertinent History Cardiac: No Pertinent History Respiratory: No Pertinent History Gastrointestinal: No Pertinent History Genitourinary: No Pertinent History Musculoskeletal: Orthopedic Surgery Male Surgical History: No Pertinent History Other Surgical History: rt elbow, hypospadias x2 - Social History Smoking Status: Current some day smoker How long have you smoked: 11 Exposure to second hand smoke: Yes Drug Use: none Patient Lives Alone: No Significant Family History: no pertinent family hx - Nursing Vital Signs Nursing Vital Signs: Initial Vital Signs Temperature 98.6 F 07/26/20 20:57 Pulse Rate 86 07/26/20 20:57 Respiratory Rate 18 07/26/20 20:57 Blood Pressure 111/78 07/26/20 20:57 O2 Sat by Pulse Oximetry 97 07/26/20 20:57 Pain Scale Pain Intensity [] 7 Pain Intensity 7 - Physical Exam General Appearance: no apparent distress, alert Eye Exam: PERRL/EOMI, eyes nml inspection Ears, Nose, Throat Exam: normal ENT inspection, TMs normal, pharynx normal, moist mucous membranes Neck Exam: normal inspection, non-tender, supple, full range of motion Respiratory Exam: normal breath sounds, lungs clear, No respiratory distress Cardiovascular Exam: regular rate/rhythm, normal heart sounds, normal peripheral pulses Gastrointestinal/Abdomen Exam: soft, normal bowel sounds, No tenderness, No mass Back Exam: normal inspection, normal range of motion, other (Mild tenderness palpation lower back. Movement reproduces symptoms. Overlying soft tissue intact. No signs of trauma.), No CVA tenderness, No vertebral tenderness Extremity Exam: normal inspection, normal range of motion, pelvis stable Neurologic Exam: alert, oriented x 3, cooperative, normal mood/affect, nml cerebellar function, nml station & gait, sensation nml, No motor deficits Skin Exam: normal color, warm, dry, No rash Lymphatic Exam: No adenopathy SpO2 Interpretation: normal SpO2: 97 O2 Delivery: Room Air - Course Nursing assessment & vital signs reviewed: Yes - CT Exams Lumbar Spine CT Interpretation: Tele-radiologist Report (Continued negative L spine compared to 09/23/2019 again with 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.) Ordered Tests: Active Orders 24 hr Category Date Time Status LUMBAR SPINE W/O [CT] Stat Exams 07/26/20 21:14 Taken UA W/RFX UR CULTURE Stat Lab 07/26/20 22:10 Completed Medication Summary Discontinued Medications Generic Name Dose Route Start Last Admin Trade Name Freq PRN Reason Stop Dose Admin Ketorolac Tromethamine 60 mg 07/26/20 21:13 07/26/20 22:11 Toradol 30 Mg Injection IM 07/26/20 21:14 60 mg STAT ONE Administration Ketorolac Tromethamine Confirm 07/26/20 22:10 Toradol 30 Mg Injection Administered 07/26/20 22:11 Dose 60 mg .ROUTE .STK-MED ONE Lab/Rad Data: Laboratory Results 07/26/20 Range/Units 22:10 Urine Color YELLOW (YELLOW) Urine Appearance CLEAR (CLEAR) Urine pH 7.0 (5-6) Ur Specific [place] 1.009 (1.005-1.025) Urine Protein NEGATIVE (Negative) Urine Ketones NEGATIVE (NEGATIVE) Urine Blood NEGATIVE (0-5) Tony/ul Urine Nitrite NEGATIVE (NEGATIVE) Urine Bilirubin NEGATIVE (NEGATIVE) Urine Urobilinogen NEGATIVE (0-1) mg/dL Ur Leukocyte Esterase NEGATIVE (NEGATIVE) Urine WBC (Auto) NONE (0-5) /HPF Urine RBC (Auto) NONE (0-2) /HPF U Epithel Cells (Auto) NONE (FEW) /HPF Urine Bacteria (Auto) NONE (NEGATIVE) /HPF Urine Culture Reflexed NO (NO) Urine Glucose NEGATIVE (NEGATIVE) mg/dL - Progress Progress: improved Progress Note: 07/26/20 22:38 Patient reassessed. Pain improved. Patient received a dose of Toradol IM. UA negative. A prescription for Toradol was forwarded to patient's pharmacy. Patient advised that he will have to rest for minimum of 3 days. Patient agrees to follow-up with his primary care doctor within 48 hours for evaluation. Patient voiced no other complaints at this time. Patient is ready for dischar . Counseled pt/family regarding: lab results, diagnosis, need for follow-up, rad results - Departure Departure Disposition: Home Clinical Impression: Lumbosacral strain Condition: Stable Critical Care Time: No Referrals: EDWIN MARQUEZ MD [Primary Care Provider] - Additional Instructions: Discharge/Care Plan GERARD ROACH was seen on 07/26/20 in the Emergency Room. The patient was counseled regarding Diagnosis,Lab results, Imaging studies, need for follow up and when to return to the Emergency Room. Prescriptions given: Discharge Note I have spoken with the patient and/or caregivers. I have explained the patient's condition, diagnosis and treatment plan based on the information available to me at this time. I have answered the patient's and/or caregiver's questions and addressed any concerns. The patient and/or caregivers have as good understanding of the patient's diagnosis, condition and treatment plan as can be expected at this point. The vital signs have been stable. The patient's condition is stable and appropriate for discharge from the emergency department. The patient will pursue further outpatient evaluation with the primary care physician or other designated or consulting physician as outlined in the discharge instructions. The patient and/or caregivers are agreeable to this plan of care and follow-up instructions have been explained in detail. The patient and/or caregivers have received these instruction. The patient/and or caregivers are aware that any significant change in condition or worsening of symptoms should prompt an immediate return to this or the closest emergency department or call 911. Prescriptions: Ketorolac Tromethamine [Toradol] 10 mg PO TID 5 Days #15 tablet
[2020-07-26 22:22] LABS: Appearance CLEAR (CLEAR); Bilirubin NEGATIVE (NEGATIVE); Blood NEGATIVE Ery/ul (0-5); Glucose NEGATIVE (NEGATIVE); Ketones NEGATIVE (NEGATIVE); Leukocyte Esterase NEGATIVE (NEGATIVE); Nitrite NEGATIVE (NEGATIVE); Protein,Urine Dip NEGATIVE (Negative); Specific Gravity 1.009 (1.005-1.025); Urobilinogen NEGATIVE mg/dL (0-1)
[2020-07-26 22:38] VITALS: BP 130/84; PULSE 69
--- NOTE | 2020-07-27 08:46 | XRAY ---
Indication: Low back pain. Multiple contiguous has images obtained through the lumbar spine. Sagittal and coronal reformatted images obtained. Comparison: September 23, 2019. Right L4 facet demonstrates again demonstrates normal variant for nonunited ossification center. Remaining facets are symmetric. No acute fracture, suspicious bony lesions, or spinal canal stenosis. Sagittal and coronal reformatted images demonstrates normal alignment with vertebral body heights/disc spaces maintained. No acute compression fracture or subluxation. Visualized noncontrasted soft tissues are unremarkable. 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
== END 2020-07-26 22:44 | disposition home or self-care (01) ==
LOC: ED 20:40
DX: S39.012A Strain of muscle, fascia and tendon of lower back, initial encounter (principal); X50.9XXA Other and unspecified overexertion or strenuous movements or postures, initial encounter; Y93.89 Activity, other specified; Y92.89 Other specified places as the place of occurrence of the external cause
CPT/HCPCS: 72131; 81001; 96372; 99284; J1885

== ENCOUNTER 2022-10-25 12:50 | Emergency (ER) | payer OTHER ==
[2022-10-25] MEDS ORDERED: Sodium Chloride 0.9% 1000 ML 1,000 ML IV STA ×2 (12:51→13:50)
[2022-10-25] MEDS ORDERED: Zofran 4 MG/2 ML VIAL IV ONE (12:51)
--- NOTE | 2022-10-25 12:52 | ERPHSYRPT ---
- History of Present Illness Time Seen by Provider: 10/25/22 12:51 Source: patient Exam Limitations: clinical condition Physician History: This is a 32-year-old male who presents with complaints of generalized weakness and body aches. Patient was out all day in the sun working. He was drinking ice tea. He is not sure if he drank enough fluids but he began having weakness, nausea vomiting and watery diarrhea as well as generalized body aches. Patient denies any new medication. He denies illicit drug use. He denies alcohol use. He has a history of ADD. He does smoke tobacco occasionally. Patient denies chest pain. He denies shortness of breath. He just feels weak and fatigued. Timing/Duration: yesterday Severity: moderate Associated Symptoms: nausea, vomiting, abdominal pain (Cramping with the watery diarrhea), loss of appetite, weakness, No shortness of breath, No chest pain, No fever Allergies/Adverse Reactions: shrimp Allergy (Severe, Verified 10/25/22 12:52) Difficulty Breathing throat swelling and difficulty breathing Sulfa (Sulfonamide Antibiotics) [Sulfa(Sulfonamide Antibiotics)] Allergy (Mild, Verified 10/25/22 12:52) Hives meperidine [From Demerol] Allergy (Verified 10/25/22 12:52) Hx Tetanus, Diphtheria Vaccination/Date Given: Yes Hx Influenza Vaccination/Date Given: Yes Hx Pneumococcal Vaccination/Date Given: No Travel Risk - International Travel Have you traveled outside of the country in past 3 weeks: No - Coronavirus Screening Are you exhibiting any of the following symptoms?: Yes Symptoms: Vomiting/Diarrhea, Headaches/Body Aches/Fatigue Close contact with a COVID-19 positive Pt in past 14-21 Days: No - Vaccine Status Have you recieved a Covid-19 vaccination: No - Review of Systems Constitutional: Weakness Eyes: No Symptoms Ears, Nose, & Throat: No Symptoms Respiratory: No Symptoms Cardiac: No Symptoms Abdominal/Gastrointestinal: Abdominal Pain (Cramping pain with diarrhea), Nausea, Vomiting, Diarrhea (Watery), Appetite Changes Genitourinary Symptoms: No Symptoms Musculoskeletal: Arthralgias, Myalgias Skin: No Symptoms Neurological: Lethargy Psychological: No Symptoms Endocrine: No Symptoms Hematologic/Lymphatic: No Symptoms Immunological/Allergic: No Symptoms All Other Systems: Reviewed and Negative - Past Medical History Pertinent Past Medical History: No Neurological History: No Pertinent History ENT History: No Pertinent History Cardiac History: No Pertinent History Respiratory History: No Pertinent History Endocrine Medical History: No Pertinent History Musculoskeletal History: No Pertinent History GI Medical History: No Pertinent History History: No Pertinent History Psycho-Social History: Attention Deficit Disorder Male Reproductive Disorders: No Pertinent History - Past Surgical History Past Surgical History: Yes Neuro Surgical History: No Pertinent History Cardiac: No Pertinent History Respiratory: No Pertinent History Gastrointestinal: No Pertinent History Genitourinary: No Pertinent History Musculoskeletal: Orthopedic Surgery Male Surgical History: No Pertinent History Other Surgical History: rt elbow, hypospadias x2 - Social History Smoking Status: Current some day smoker How long have you smoked: 11 Exposure to second hand smoke: Yes Drug Use: none Patient Lives Alone: No Significant Family History: no pertinent family hx - Nursing Vital Signs Nursing Vital Signs: Initial Vital Signs Blood Pressure 108/86 10/25/22 12:51 O2 Sat by Pulse Oximetry 97 10/25/22 12:51 Pain Scale Pain Intensity 10 - Course Nursing assessment & vital signs reviewed: Yes EKG Interpreted by Me: RATE (76), Sinus Rhythm, NORMAL AXIS, NORMAL INTERVALS, NORMAL QRS, NORMAL ST-T, Other (No acute ischemic changes on today's twelve-lead EKG.) Ordered Tests: Active Orders 24 hr Category Date Time Status Radiator Specialist STAT Care 10/25/22 12:52 Active Clean Catch Urine Specimen STAT Care 10/25/22 12:51 Active EKG-ER Only STAT Care 10/25/22 12:51 Active IV Insertion STAT Care 10/25/22 12:51 Active POCT Glucose Check STAT Care 10/25/22 12:51 Active HEAD WITHOUT CONTRAST [CT] Stat Exams 10/25/22 12:53 Completed ACETAMINOPHEN Stat Lab 10/25/22 12:55 Completed BMP Stat Lab 10/25/22 15:45 Ordered CBC W DIFF Stat Lab 10/25/22 12:55 Completed CBC W DIFF Stat Lab 10/25/22 15:45 Ordered CMP Stat Lab 10/25/22 12:55 Completed CULTURE,URINE Stat Lab 10/25/22 12:59 Received ETHYL ALCOHOL Stat Lab 10/25/22 12:55 Completed Lactic Acid Stat Lab 10/25/22 13:25 Completed SALICYLATE Stat Lab 10/25/22 12:55 Completed UA W/RFX UR CULTURE Stat Lab 10/25/22 12:59 Completed Urine Triage Profile Stat Lab 10/25/22 12:59 Completed Medication Summary Generic Name Dose Route Start Last Admin Trade Name Watson PRN Reason Stop Dose Admin Sodium Chloride 500 mls @ 500 mls/hr 10/25/22 14:47 10/25/22 15:11 Sodium Chloride 0.9% 500 Ml IV 10/25/22 15:46 500 mls/hr .Q1H ONE Administration Discontinued Medications Generic Name Dose Route Start Last Admin Trade Name Watson PRN Reason Stop Dose Admin Sodium Chloride 1,000 mls @ 999 mls/hr 10/25/22 12:51 10/25/22 14:05 Sodium Chloride 0.9% 1000 Ml IV 10/25/22 13:51 Infused .Q1H1M STA Infusion Sodium Chloride Confirm 10/25/22 12:56 Sodium Chloride 0.9% 1000 Ml Administered 10/25/22 12:57 Dose 1,000 mls @ ud .ROUTE .STK-MED ONE Sodium Chloride 1,000 mls @ 999 mls/hr 10/25/22 13:50 10/25/22 15:01 Sodium Chloride 0.9% 1000 Ml IV 10/25/22 14:50 Infused .Q1H1M STA Infusion Sodium Chloride Confirm 10/25/22 13:51 Sodium Chloride 0.9% 1000 Ml Administered 10/25/22 13:52 Dose 1,000 mls @ ud .ROUTE .STK-MED ONE Ceftriaxone Sodium/Dextrose 1 g in 50 mls @ 100 mls/hr 10/25/22 14:33 10/25/22 15:11 Rocephin 1 Gm-D5w 50 Ml Bag IV 10/25/22 15:02 100 mls/hr STAT STA 100 mls/hr Administration Ceftriaxone Sodium/Dextrose Confirm 10/25/22 15:10 Rocephin 1 Gm-D5w 50 Ml Bag Administered 10/25/22 15:11 Dose 1 g in 50 mls @ ud IV .STK-MED ONE Sodium Chloride Confirm 10/25/22 15:10 Sodium Chloride 0.9% 500 Ml Administered 10/25/22 15:11 Dose 500 mls @ ud IV .STK-MED ONE Ondansetron HCl 4 mg 10/25/22 12:51 10/25/22 12:58 Ondansetron Hcl 4 Mg/2 Ml Vial IV 10/25/22 12:52 4 mg STAT ONE Administration Ondansetron HCl Confirm 10/25/22 12:56 Ondansetron Hcl 4 Mg/2 Ml Vial Administered 10/25/22 12:57 Dose 4 mg .ROUTE .STK-MED ONE Lab/Rad Data: Laboratory Result Diagrams 10/25/22 12:55 10/25/22 12:55 Laboratory Results 10/25/22 10/25/22 10/25/22 Range/Units 13:25 13:20 12:59 WBC (4.0-10.5) x10^3/uL RBC (4.1-5.6) x10^6/uL Hgb (12.5-18.0) g/dL Hct (42-50) % MCV (78-100) fL MCH (26-32) pg MCHC (32-36) g/dL RDW (11.5-14.0) % Plt Count (150-450) x10^3/uL MPV (7.5-11.0) fL Gran % (36.0-66.0) % Immature Gran % (Auto) (0.00-0.4) % Nucleat RBC Rel Count (0.00-0.1) % Eos # (Auto) (0-0.5) x10^3/uL Immature Gran # (Auto) (0.00-0.03) x10^3u/L Absolute Lymphs (auto) (1.0-4.6) x10^3/uL Absolute Monos (auto) (0.0-1.3) x10^3/uL Absolute Nucleated RBC (0.00-0.01) x10^3u/L Lymphocytes % (24.0-44.0) % Monocytes % (0.0-12.0) % Eosinophils % (0.00-5.0) % Basophils % (0.0-0.4) % Absolute Granulocytes (1.4-6.9) x10^3/uL Basophils # (0-0.4) x10^3/uL Sodium (137-145) mmol/L Potassium (3.5-5.1) mmol/L Chloride (98-107) mmol/L Carbon Dioxide (22-30) mmol/L Anion Gap (5-15) MEQ/L BUN (9-20) mg/dL Creatinine (0.66-1.25) mg/dL Estimated GFR ML/MIN Glucose (74-106) mg/dL Lactic Acid 1.0 (0.4-2.0) Calcium (8.4-10.2) mg/dL Total Bilirubin (0.2-1.3) mg/dL AST (17-59) U/L ALT (0-50) U/L Alkaline Phosphatase (38-126) U/L Serum Total Protein (6.3-8.2) g/dL Albumin (3.5-5.0) g/dL Urine Color (Yellow) Urine Appearance (Clear) Urine pH (4.6-8.0) Ur Specific [place] (1.005-1.030) Urine Protein (Negative) Urine Glucose (UA) (Negative) mg/dL Urine Ketones (Negative) Urine Blood (Negative) Urine Nitrite (Negative) Urine Bilirubin (Negative) Urine Urobilinogen (0.2) mg/dL Ur Leukocyte Esterase (Negative) U Hyaline Cast (Auto) (0-2) /LPF Urine Microscopic RBC (0-5) /HPF Urine Microscopic WBC (0-5) /HPF Ur Epithelial Cells (None Seen) /HPF Urine Bacteria (None Seen) /HPF Urine Culture Reflexed (NO) Salicylates (2-20) mg/dL Urine Opiates Level NEGATIVE (NEGATIVE) Ur Methadone NEGATIVE (NEGATIVE) Acetaminophen (10-30) ug/ml Urine Barbiturates NEGATIVE (NEGATIVE) Ur Phencyclidine (PCP) NEGATIVE (NEGATIVE) Urine Amphetamine NEGATIVE (NEGATIVE) U Benzodiazepine Level NEGATIVE (NEGATIVE) Urine Cocaine NEGATIVE (NEGATIVE) Urine Marijuana (THC) NEGATIVE (NEGATIVE) Ethyl Alcohol (0-10) mg/dL Influenza Type A Ag NEGATIVE (NEGATIVE) Influenza Type B Ag NEGATIVE (NEGATIVE) RSV (PCR) NEGATIVE (NEGATIVE) SARS-CoV-2 (PCR) NEGATIVE (NEGATIVE) 10/25/22 10/25/22 10/25/22 Range/Units 12:59 12:55 12:55 WBC 20.4 H (4.0-10.5) x10^3/uL RBC 5.58 (4.1-5.6) x10^6/uL Hgb 18.0 (12.5-18.0) g/dL Hct 50.9 H (42-50) % MCV 91.2 (78-100) fL MCH 32.3 H (26-32) pg MCHC 35.4 (32-36) g/dL RDW 12.2 (11.5-14.0) % Plt Count 238 (150-450) x10^3/uL MPV 10.6 (7.5-11.0) fL Gran % 88.1 H (36.0-66.0) % Immature Gran % (Auto) 0.5 H (0.00-0.4) % Nucleat RBC Rel Count 0.0 (0.00-0.1) % Eos # (Auto) 0.08 (0-0.5) x10^3/uL Immature Gran # (Auto) 0.10 H (0.00-0.03) x10^3u/L Absolute Lymphs (auto) 0.88 L (1.0-4.6) x10^3/uL Absolute Monos (auto) 1.32 H (0.0-1.3) x10^3/uL Absolute Nucleated RBC 0.00 (0.00-0.01) x10^3u/L Lymphocytes % 4.3 L (24.0-44.0) % Monocytes % 6.5 (0.0-12.0) % Eosinophils % 0.4 (0.00-5.0) % Basophils % 0.2 (0.0-0.4) % Absolute Granulocytes 17.96 H (1.4-6.9) x10^3/uL Basophils # 0.04 (0-0.4) x10^3/uL Sodium 138 (137-145) mmol/L Potassium 5.2 H (3.5-5.1) mmol/L Chloride 106 (98-107) mmol/L Carbon Dioxide 18 L (22-30) mmol/L Anion Gap 20.1 H (5-15) MEQ/L BUN 23 H (9-20) mg/dL Creatinine 0.94 (0.66-1.25) mg/dL Estimated GFR > 60.0 ML/MIN Glucose 149 H (74-106) mg/dL Lactic Acid (0.4-2.0) Calcium 10.1 (8.4-10.2) mg/dL Total Bilirubin 0.80 (0.2-1.3) mg/dL AST 27 (17-59) U/L ALT 22 (0-50) U/L Alkaline Phosphatase 125 (38-126) U/L Serum Total Protein 9.1 H (6.3-8.2) g/dL Albumin 5.3 H (3.5-5.0) g/dL Urine Color Dark Yellow (Yellow) Urine Appearance Cloudy A (Clear) Urine pH 5.5 (4.6-8.0) Ur Specific [place] >=1.030 A (1.005-1.030) Urine Protein 100 A (Negative) Urine Glucose (UA) Negative (Negative) mg/dL Urine Ketones Trace A (Negative) Urine Blood Negative (Negative) Urine Nitrite Negative (Negative) Urine Bilirubin Moderate A (Negative) Urine Urobilinogen 1.0 A (0.2) mg/dL Ur Leukocyte Esterase Small A (Negative) U Hyaline Cast (Auto) 20-50 (0-2) /LPF Urine Microscopic RBC 3-5 (0-5) /HPF Urine Microscopic WBC 6-10 A (0-5) /HPF Ur Epithelial Cells Rare (None Seen) /HPF Urine Bacteria None Seen (None Seen) /HPF Urine Culture Reflexed YES (NO) Salicylates < 1.0 L (2-20) mg/dL Urine Opiates Level (NEGATIVE) Ur Methadone (NEGATIVE) Acetaminophen < 10 L (10-30) ug/ml Urine Barbiturates (NEGATIVE) Ur Phencyclidine (PCP) (NEGATIVE) Urine Amphetamine (NEGATIVE) U Benzodiazepine Level (NEGATIVE) Urine Cocaine (NEGATIVE) Urine Marijuana (THC) (NEGATIVE) Ethyl Alcohol < 10 (0-10) mg/dL Influenza Type A Ag (NEGATIVE) Influenza Type B Ag (NEGATIVE) RSV (PCR) (NEGATIVE) SARS-CoV-2 (PCR) (NEGATIVE) - Progress Progress: improved, re-examined Progress Note: 10/25/22 14:32 This patient's CAT scan of the head without contrast shows no acute intracranial abnormality. This patient's medical issue is 1 of moderate complexity. Level of complexity and the work-up performed is based on review of the patient's past medical history, review the patient's medication list, review of the patient's drug allergy list, history of present illness and physical findings on examination. The work-up in this patient includes twelve-lead EKG, CAT scan of the head without contrast, placement of an intravenous line infusion of normal saline solution, urine drug screen, alcohol level, salicylate and acetaminophen levels, troponin level, viral studies as well. 10/25/22 15:12 General history was obtained from the patient's spouse. He said he has had episodes in the past where he has been exposed to extended periods of time of high heat and humidity and has similar response. Clinically, the patient states he is feeling much better at this time. 10/25/22 15:45 Patient states he is feeling better. He is refusing all lab draws to be done 1545. He will sign a refusal of treatment. We will discharge him to home. Counseled pt/family regarding: lab results, diagnosis, need for follow-up, rad results Medical Desision Making - Independent Historian Additional History obtained from: Spouse - Diagnostic Testing Diagnostic test were ordered, analyzed, and reviewed by me: Yes Radiological Interpretation: Reviewed by me, Teleradiologist Report - Risk of complications The pt has a mod risk of morbidity or mortality based on: Need for prescription drug management - Departure Departure Disposition: Home Clinical Impression: Dehydration, UTI (urinary tract infection), Weakness Condition: Stable Critical Care Time: No Referrals: EDWIN MARQUEZ MD [Primary Care Provider] - Follow up/PCP as directed Additional Instructions: Drink plenty of fluids. Avoid exposure to sun and heat for the next 48 hours. Take your medication as prescribed. Call your primary care provider on 10/27/2022 to make arrangements for follow-up appointment and further evaluation and management. Prescriptions: Ondansetron ODT 4 MG [Zofran Odt 4 mg] 4 mg PO Q6H PRN PRN #10 tablet PRN Reason: Vomiting Cephalexin Mh 500 mg [Keflex 500 mg] 500 mg PO TID #21 cap
[2022-10-25] MEDS ORDERED: Sodium Chloride 0.9% 1000 ML 1,000 ML ONE ×2 (12:56→13:51)
[2022-10-25] MEDS ORDERED: Zofran 4 MG/2 ML VIAL ONE (12:56)
[2022-10-25 12:59] VITALS: TEMP 97.7
[2022-10-25 13:05] LABS: Absolute Neutrophil Ct (ANC) 17.96 x10^3/uL (1.4-6.9); BASOPHIL % 0.2 % (0.0-0.4); Basophil (Absolute #) 0.04 x10^3/uL (0-0.4); Eosinophil % 0.4 % (0.00-5.0); Eosinophil (Absolute #) 0.08 x10^3/uL (0-0.5); Hematocrit 50.9 % (42-50); IMMATURE GRAN % 0.5 % (0.00-0.4); Lymphocyte (Absolute #) 0.88 x10^3/uL (1.0-4.6); Lymphocytes % 4.3 % (24.0-44.0); Mean Cell Volume 91.2 fL (78-100); Mean Corpuscular Hemoglobin 32.3 pg (26-32); Mean Corpuscular Hgb Concent. 35.4 g/dL (32-36); Mean Platelet Volume 10.6 fL (7.5-11.0); Monocyte (Absolute #) 1.32 x10^3/uL (0.0-1.3); Monocytes % 6.5 % (0.0-12.0); Neutrophil % 88.1 % (36.0-66.0); Platelet Count 238 x10^3/uL (150-450); Red Blood Count 5.58 x10^6/uL (4.1-5.6); Red Cell Distribution Width 12.2 % (11.5-14.0); White Blood Count 20.4 x10^3/uL (4.0-10.5)
[2022-10-25 13:20] LABS: ACETAMINOPHEN < 10 ug/ml (10-30); ALBUMIN 5.3 g/dL (3.5-5.0); ALKALINE PHOSPHATASE 125 U/L (38-126); ANION GAP 20.1 MEQ/L (5-15); BLOOD UREA NITROGEN 23 mg/dL (9-20); CHLORIDE 106 mmol/L (98-107); Calcium 10.1 mg/dL (8.4-10.2); Carbon Dioxide 18 mmol/L (22-30); Creatinine 1 0.94 mg/dL (0.66-1.25); EST GLOMERULAR FILTRATION RATE > 60.0 ML/MIN; ETHYL ALCOHOL < 10 mg/dL (0-10); Glucose 149 mg/dL (74-106); Potassium 5.2 mmol/L (3.5-5.1); SALICYLATE < 1.0 mg/dL (2-20); SGOT/AST 27 U/L (17-59); SGPT/ALT 22 U/L (0-50); SODIUM 138 mmol/L (137-145); Total Protein 9.1 g/dL (6.3-8.2)
[2022-10-25 13:34] LABS: Amphetamine,Urine NEGATIVE (NEGATIVE); Appearance Cloudy (Clear); Bacteria None Seen /HPF (None Seen); Barbiturate,Urine NEGATIVE (NEGATIVE); Benzodiazepine,Urine NEGATIVE (NEGATIVE); Bilirubin Moderate (Negative); Blood Negative (Negative); Cocaine,Urine NEGATIVE (NEGATIVE); Epithelial Cells Rare /HPF (None Seen); Glucose, Urine Negative (Negative); Ketones Trace (Negative); Leukocyte Esterase Small (Negative); Methadone,Urine NEGATIVE (NEGATIVE); Nitrite Negative (Negative); Opiate,Urine NEGATIVE (NEGATIVE); PCP,Urine NEGATIVE (NEGATIVE); Ph 5.5 (4.6-8.0); Protein,Urine Dip 100 (Negative); Specific Gravity >=1.030 (1.005-1.030); THC,Urine NEGATIVE (NEGATIVE)
[2022-10-25 13:36] LABS: Hyaline Casts 20-50 /LPF (0-2)
[2022-10-25 13:37] LABS: ADD URINE CULTURE? YES (NO)
--- NOTE | 2022-10-25 14:01 | XRAY ---
CLINICAL HISTORY:Altered mental status COMPARISON:None. TECHNIQUE:Multiplanar noncontrast CT scan of the brain was performed from the skull base to the high parietal region. CTDI 53.92 DLP 1044.86. FINDINGS: The visualized brain parenchyma shows normal appearance. Vargas-white matter differentiation is maintained. No midline shifts or deformity. No intracerebral or extra axial hematoma. Normal size and configuration of the cerebral ventricles. Normal CT appearance of the posterior fossa structures namely the cerebellar hemispheres, brainstem and cerebellar peduncles. The IACs are unremarkable. The cerebello-pontine angles are clear. The osseous structures in the skull base are unremarkable. No definite calvarium fractures. The scanned paranasal sinuses are clear. IMPRESSION: No intracranial hematoma, established territorial infarction or mass affect was noted. Electronically Signed by: Sarah Brumfield MD. (10/25/2022 13:00:31 VOLLEYBALL ASSISTANT COACH)
[2022-10-25 14:04] LABS: INFLUENZA A NEGATIVE (NEGATIVE); INFLUENZA B NEGATIVE (NEGATIVE); RESPIRATORY SYNCTIAL VIRUS NEGATIVE (NEGATIVE); SARS-CoV-2 Xpert Express NEGATIVE (NEGATIVE)
[2022-10-25] MEDS ORDERED: ROCEPHIN 1 Gm-D5w 50 ml Bag** 1 G/50 ML IVPB IV STA (14:33)
[2022-10-25] MEDS ORDERED: Sodium Chloride 0.9% 500 ML 500 ML IV ONE ×2 (14:47→15:10)
[2022-10-25] MEDS ORDERED: ROCEPHIN 1 Gm-D5w 50 ml Bag** 1 G/50 ML IVPB IV ONE (15:10)
[2022-10-25 15:46] VITALS: BP 109/83; PULSE 82; RESP 20; O2SAT 97
== END 2022-10-25 16:00 | disposition home or self-care (01) ==
LOC: ED 12:50
DX: E86.0 Dehydration (principal); N39.0 Urinary tract infection, site not specified; R53.1 Weakness; M79.10 Myalgia, unspecified site; R11.2 Nausea with vomiting, unspecified; R19.7 Diarrhea, unspecified; Z28.310 Unvaccinated for COVID-19; Z72.0 Tobacco use
CPT/HCPCS: 0241U; 36000; 36415; 70450; 80053; 80143; 80179; 80307; 81001; 82077; 83605; 85025; 87086; 93005; 93041; 96360; 96361; 96365; 96374; 99284; J0696; J2405

== ENCOUNTER 2024-03-23 17:45 | Emergency (ER) | payer BC, OTHER ==
[2024-03-23 18:59] VITALS: TEMP 97.8
--- NOTE | 2024-03-23 20:32 | ERPHSYRPT ---
- History of Present Illness Time Seen by Provider: 03/23/24 20:18 Historian: patient Exam Limitations: no limitations Patient Subjective Stated Complaint: pt here for chills,vomiting, loose stools since 0700 today Triage Nursing Assessment: pt alert, walked back, moaning off and on, resp easy, skin w/d/p Physician History: For the past 13.5 hours pt has had many episodes of vomiting without blood and diarrhea without blood; for the past 8 hours pt has had constant abdominal pain up to 9/10 in severity. Pt denies chest pain, shortness of air, fever. Allergies/Adverse Reactions: shrimp Allergy (Severe, Verified 03/23/24 18:55) Difficulty Breathing throat swelling and difficulty breathing Sulfa (Sulfonamide Antibiotics) [Sulfa(Sulfonamide Antibiotics)] Allergy (Mild, Verified 03/23/24 18:55) Hives meperidine [From Demerol] Allergy (Verified 03/23/24 18:55) Hx Tetanus, Diphtheria Vaccination/Date Given: Yes Hx Influenza Vaccination/Date Given: Yes Hx Pneumococcal Vaccination/Date Given: No Immunizations Up to Date: Yes Travel Risk - International Travel Have you traveled outside of the country in past 3 weeks: No - Emerging Infectious Disease Are you exhibiting symptoms associated with any current EIDs: Yes Symptoms: Diarrhea, Vomitting - Review of Systems Constitutional: No Fever Respiratory: No Dyspnea Cardiac: No Chest Pain Abdominal/Gastrointestinal: Abdominal Pain, Vomiting, Diarrhea - Past Medical History Pertinent Past Medical History: No Neurological History: No Pertinent History ENT History: No Pertinent History Cardiac History: No Pertinent History Respiratory History: No Pertinent History Endocrine Medical History: No Pertinent History Musculoskeletal History: No Pertinent History GI Medical History: No Pertinent History History: No Pertinent History Psycho-Social History: Attention Deficit Disorder Male Reproductive Disorders: No Pertinent History - Past Surgical History Past Surgical History: Yes Neuro Surgical History: No Pertinent History Cardiac: No Pertinent History Respiratory: No Pertinent History Gastrointestinal: No Pertinent History Genitourinary: No Pertinent History Musculoskeletal: Orthopedic Surgery Male Surgical History: No Pertinent History Other Surgical History: rt elbow, hypospadias x2 Significant Family History: no pertinent family hx - Social History Smoking Status: Current every day smoker How long have you smoked: 11 Exposure to second hand smoke: Yes Drug Use: marijuana Patient Lives Alone: No - Social Determinants of Health Will the patient participate in the screening: Declined to provide - Nursing Vital Signs Nursing Vital Signs: Initial Vital Signs Temperature 97.8 F 03/23/24 18:58 Pulse Rate 100 H 03/23/24 18:58 Respiratory Rate 20 03/23/24 18:58 Blood Pressure 119/70 03/23/24 18:58 O2 Sat by Pulse Oximetry 98 03/23/24 18:58 Pain Scale Pain Intensity 0 - Physical Exam General Appearance: alert Eye Exam: PERRL/EOMI Ears, Nose, Throat Exam: TMs normal, pharyngeal erythema (mild) Neck Exam: normal inspection Respiratory Exam: lungs clear Cardiovascular Exam: normal heart sounds Gastrointestinal/Abdomen Exam: No normal bowel sounds (B.S. mildly hyperactive and normotonic) Back Exam: normal inspection Extremity Exam: No pedal edema Neurologic Exam: alert, cooperative Skin Exam: warm, dry SpO2 Interpretation: normal SpO2: 98 O2 Delivery: Room Air - Course Nursing assessment & vital signs reviewed: Yes - CT Exams Abdomen/Pelvis CT Interpretation: Discussed w/radiologist (No acute findings) Ordered Tests: Active Orders 24 hr Category Date Time Status IV Insertion STAT Care 03/23/24 20:29 Active ABDOMEN AND PELVIS W/0 CONTRAS [CT] Stat Exams 03/23/24 20:30 Taken AMYLASE Stat Lab 03/23/24 20:30 Completed CBC W DIFF Stat Lab 03/23/24 20:30 Completed CMP Stat Lab 03/23/24 20:30 Completed CULTURE,URINE Stat Lab 03/23/24 20:30 Received LIPASE Stat Lab 03/23/24 20:30 Completed MAGNESIUM Stat Lab 03/23/24 20:30 Completed UA W/RFX UR CULTURE Stat Lab 03/23/24 20:30 Completed Medication Summary Discontinued Medications Generic Name Dose Route Start Last Admin Trade Name Freq PRN Reason Stop Dose Admin Sodium Chloride 1,000 mls @ 999 mls/hr 03/23/24 20:29 03/23/24 20:48 Sodium Chloride 0.9% 1000 Ml IV 03/23/24 21:29 999 mls/hr .Q1H1M STA Administration Sodium Chloride Confirm 03/23/24 20:44 Sodium Chloride 0.9% 1000 Ml Administered 03/23/24 20:45 Dose 1,000 mls @ ud .ROUTE .STK-MED ONE Morphine Sulfate 2 mg 03/23/24 20:29 03/23/24 20:47 Morphine Sulfate 2 Mg/Ml Inj IV 03/23/24 20:30 2 mg STAT ONE Administration Morphine Sulfate Confirm 03/23/24 20:44 Morphine Sulfate 2 Mg/Ml Inj Administered 03/23/24 20:45 Dose 2 mg .ROUTE .STK-MED ONE Ondansetron HCl 4 mg 03/23/24 20:29 03/23/24 20:46 Ondansetron Hcl 4 Mg/2 Ml Vial IV 03/23/24 20:30 4 mg STAT ONE Administration Ondansetron HCl Confirm 03/23/24 20:44 Ondansetron Hcl 4 Mg/2 Ml Vial Administered 03/23/24 20:45 Dose 4 mg .ROUTE .STK-MED ONE Lab/Rad Data: Laboratory Result Diagrams 03/23/24 20:30 03/23/24 20:30 Laboratory Results 03/23/24 03/23/24 03/23/24 Range/Units 20:30 20:30 20:30 WBC (4.23-9.07) x10^3/uL RBC (4.63-6.08) x10^6/uL Hgb (13.7-17.5) g/dL Hct (40.1-51.0) % MCV (79.0-92.2) fL MCH (25.7-32.2) pg MCHC (32.3-36.5) g/dL RDW (11.6-14.4) % Plt Count (163-337) x10^3/uL MPV (9.4-12.4) fL Gran % (34.0-67.9) % Immature Gran % (Auto) (0.001-0.429) % Nucleat RBC Rel Count (0.00-0.2) % Eos # (Auto) (0.04-0.54) x10^3/uL Immature Gran # (Auto) (0.001-0.031) x10^3u/L Absolute Lymphs (auto) (1.32-3.57) x10^3/uL Absolute Monos (auto) (0.30-0.82) x10^3/uL Absolute Nucleated RBC (0.00-0.012) x10^3u/L Lymphocytes % (21.8-53.1) % Monocytes % (5.3-12.2) % Eosinophils % (0.8-7.0) % Basophils % (0.2-1.2) % Absolute Granulocytes (1.78-5.38) x10^3/uL Basophils # (0.01-0.08) x10^3/uL Sodium 138 (135-145) mmol/L Potassium 4.3 (3.5-5.1) mmol/L Chloride 104 (98-107) mmol/L Carbon Dioxide 23 (22-30) mmol/L Anion Gap 14.4 (5-15) MEQ/L BUN 18 (9-20) mg/dL Creatinine 0.88 (0.66-1.25) mg/dL Estimated GFR 117.9 ML/MIN Glucose 130 H (74-106) mg/dL Calcium 10.0 (8.4-10.2) mg/dL Magnesium 1.8 (1.6-2.3) mg/dL Total Bilirubin 0.80 (0.2-1.3) mg/dL AST 31 (17-59) U/L ALT 23 (0-50) U/L Alkaline Phosphatase 116 (38-126) U/L Serum Total Protein 7.8 (6.3-8.2) g/dL Albumin 5.0 (3.5-5.0) g/dL Amylase 48 (30-110) U/L Lipase 40 (23-300) U/L Urine Color Dark Yellow (Yellow) Urine Appearance Clear (Clear) Urine pH 5.5 (4.6-8.0) Ur Specific [place] >=1.030 A (1.005-1.030) Urine Protein 30 (Negative) Urine Glucose (UA) Negative (Negative) mg/dL Urine Ketones Trace A (Negative) Urine Blood Small A (Negative) Urine Nitrite Negative (Negative) Urine Bilirubin Negative (Negative) Urine Urobilinogen 1.0 A (0.2) mg/dL Ur Leukocyte Esterase Trace A (Negative) U Hyaline Cast (Auto) 3-5 A (0-2) /LPF Urine Microscopic RBC 51-100 A (0-5) /HPF Urine Microscopic WBC 3-5 (0-5) /HPF Ur Epithelial Cells None Seen (None Seen) /HPF Urine Bacteria None Seen (None Seen) /HPF Urine Culture Reflexed YES (NO) 12/25/24 Range/Units 20:30 WBC 13.9 H (4.23-9.07) x10^3/uL RBC 5.22 (4.63-6.08) x10^6/uL Hgb 16.6 (13.7-17.5) g/dL Hct 46.2 (40.1-51.0) % MCV 88.5 (79.0-92.2) fL MCH 31.8 (25.7-32.2) pg MCHC 35.9 (32.3-36.5) g/dL RDW 12.1 (11.6-14.4) % Plt Count 193 (163-337) x10^3/uL MPV 10.8 (9.4-12.4) fL Gran % 91.7 H (34.0-67.9) % Immature Gran % (Auto) 0.3 (0.001-0.429) % Nucleat RBC Rel Count 0.0 (0.00-0.2) % Eos # (Auto) 0.02 L (0.04-0.54) x10^3/uL Immature Gran # (Auto) 0.04 H (0.001-0.031) x10^3u/L Absolute Lymphs (auto) 0.37 L (1.32-3.57) x10^3/uL Absolute Monos (auto) 0.71 (0.30-0.82) x10^3/uL Absolute Nucleated RBC 0.00 (0.00-0.012) x10^3u/L Lymphocytes % 2.7 L (21.8-53.1) % Monocytes % 5.1 L (5.3-12.2) % Eosinophils % 0.1 L (0.8-7.0) % Basophils % 0.1 L (0.2-1.2) % Absolute Granulocytes 12.73 H (1.78-5.38) x10^3/uL Basophils # 0.02 (0.01-0.08) x10^3/uL Sodium (135-145) mmol/L Potassium (3.5-5.1) mmol/L Chloride (98-107) mmol/L Carbon Dioxide (22-30) mmol/L Anion Gap (5-15) MEQ/L BUN (9-20) mg/dL Creatinine (0.66-1.25) mg/dL Estimated GFR ML/MIN Glucose (74-106) mg/dL Calcium (8.4-10.2) mg/dL Magnesium (1.6-2.3) mg/dL Total Bilirubin (0.2-1.3) mg/dL AST (17-59) U/L ALT (0-50) U/L Alkaline Phosphatase (38-126) U/L Serum Total Protein (6.3-8.2) g/dL Albumin (3.5-5.0) g/dL Amylase (30-110) U/L Lipase (23-300) U/L Urine Color (Yellow) Urine Appearance (Clear) Urine pH (4.6-8.0) Ur Specific [place] (1.005-1.030) Urine Protein (Negative) Urine Glucose (UA) (Negative) mg/dL Urine Ketones (Negative) Urine Blood (Negative) Urine Nitrite (Negative) Urine Bilirubin (Negative) Urine Urobilinogen (0.2) mg/dL Ur Leukocyte Esterase (Negative) U Hyaline Cast (Auto) (0-2) /LPF Urine Microscopic RBC (0-5) /HPF Urine Microscopic WBC (0-5) /HPF Ur Epithelial Cells (None Seen) /HPF Urine Bacteria (None Seen) /HPF Urine Culture Reflexed (NO) - Progress Progress: improved Counseled pt/family regarding: lab results, diagnosis, need for follow-up, rad results Medical Desision Making - Diagnostic Testing Diagnostic test were ordered, analyzed, and reviewed by me: Yes Radiological Interpretation: Discussed w/ radiologist - Departure Departure Disposition: Home Clinical Impression: Abdominal pain, Vomiting, Diarrhea, Hematuria Condition: Stable Critical Care Time: No Referrals: DOCTOR,NO FAMILY [Primary Care Provider] - Follow up/PCP as directed Instructions: Nausea and Vomiting, Adult ED, Diarrhea, Adult ED, Abdominal Pain, Adult ED Additional Instructions: Follow up with private doctor tomorrow. Forms: Work/School Release Form Prescriptions: Ondansetron ODT 4 MG [Zofran Odt 4 mg] 4 mg PO Q6H PRN PRN #10 tablet PRN Reason: Nausea
[2024-03-23] MEDS ORDERED: Sodium Chloride 0.9% 1000 ML 1,000 ML ONE (20:44)
[2024-03-23] MEDS ORDERED: Zofran 4 MG/2 ML VIAL ONE (20:44)
[2024-03-23] MEDS ORDERED: MORPHINE SULFATE 2 MG INJ ONE (20:44)
[2024-03-23] MEDS: Zofran 4 MG/2 ML VIAL IV ONE (20:46)
[2024-03-23] MEDS: MORPHINE SULFATE 2 MG INJ IV ONE (20:47)
[2024-03-23] MEDS: Sodium Chloride 0.9% 1000 ML 1,000 ML IV STA (20:48)
[2024-03-23 21:09] LABS: Absolute Neutrophil Ct (ANC) 12.73 x10^3/uL (1.78-5.38); BASOPHIL % 0.1 % (0.2-1.2); Basophil (Absolute #) 0.02 x10^3/uL (0.01-0.08); Eosinophil % 0.1 % (0.8-7.0); Eosinophil (Absolute #) 0.02 x10^3/uL (0.04-0.54); Hematocrit 46.2 % (40.1-51.0); Hemoglobin 16.6 g/dL (13.7-17.5); IMMATURE GRAN # 0.04 x10^3u/L (0.001-0.031); IMMATURE GRAN % 0.3 % (0.001-0.429); Lymphocyte (Absolute #) 0.37 x10^3/uL (1.32-3.57); Lymphocytes % 2.7 % (21.8-53.1); Mean Cell Volume 88.5 fL (79.0-92.2); Mean Corpuscular Hemoglobin 31.8 pg (25.7-32.2); Mean Corpuscular Hgb Concent. 35.9 g/dL (32.3-36.5); Mean Platelet Volume 10.8 fL (9.4-12.4); Monocyte (Absolute #) 0.71 x10^3/uL (0.30-0.82); Monocytes % 5.1 % (5.3-12.2); Neutrophil % 91.7 % (34.0-67.9); Platelet Count 193 x10^3/uL (163-337); Red Blood Count 5.22 x10^6/uL (4.63-6.08); Red Cell Distribution Width 12.1 % (11.6-14.4); White Blood Count 13.9 x10^3/uL (4.23-9.07)
[2024-03-23 21:14] VITALS: RESP 18
[2024-03-23 21:24] LABS: ANION GAP 14.4 MEQ/L (5-15); BILIRUBIN,TOTAL 0.8 mg/dL (0.2-1.3); Creatinine 1 0.88 mg/dL (0.66-1.25); EST GLOMERULAR FILTRATION RATE 117.9 ML/MIN; Potassium 4.3 mmol/L (3.5-5.1); Total Protein 7.8 g/dL (6.3-8.2)
[2024-03-23 21:25] LABS: Appearance Clear (Clear); Bilirubin Negative (Negative); Blood Small (Negative); Glucose, Urine Negative (Negative); Ketones Trace (Negative); Leukocyte Esterase Trace (Negative); Nitrite Negative (Negative); Ph 5.5 (4.6-8.0); Protein,Urine Dip 30 (Negative); Specific Gravity >=1.030 (1.005-1.030)
[2024-03-23 21:26] LABS: Bacteria None Seen /HPF (None Seen); Epithelial Cells None Seen /HPF (None Seen); RBC 51-100 /HPF (0-5)
[2024-03-23 22:46] LABS: INFLUENZA A NEGATIVE (NEGATIVE); INFLUENZA B NEGATIVE (NEGATIVE); RESPIRATORY SYNCTIAL VIRUS NEGATIVE (NEGATIVE); SARS-CoV-2 Xpert Express NEGATIVE (NEGATIVE)
[2024-03-23 22:47] VITALS: O2SAT 98
[2024-03-23 23:13] VITALS: BP 116/84; PULSE 88
[2024-03-24 00:04] LABS: Slide Review 1 YES
--- NOTE | 2024-03-24 08:51 | XRAY ---
Indication: Abdominal pain and loose stools. Multiple contiguous axial images obtained through the abdomen and pelvis without contrast. Comparison: September 23, 2019 Lung bases clear. Heart not enlarged. Noncontrasted stomach and bowel loops appear nonobstructed with normal appendix. Minimal sigmoid diverticulosis without diverticulitis. No free fluid/air. Remaining liver, gallbladder, pancreas, spleen, adrenal glands, kidneys, ureters, bladder, and aorta are unremarkable for noncontrast exam. Osseous structures intact. No ventral or inguinal hernias. Impression: Sigmoid diverticulosis. Remaining CT abdomen/pelvis without contrast exam is again negative.
== END 2024-03-23 22:53 | disposition home or self-care (01) ==
LOC: ED 17:45
DX: R10.9 Unspecified abdominal pain (principal); R11.10 Vomiting, unspecified; R19.7 Diarrhea, unspecified; R31.9 Hematuria, unspecified
CPT/HCPCS: 0241U; 36415; 74176; 80053; 81001; 82150; 83690; 83735; 85025; 87086; 87651; 96360; 96374; 96375; 99284; J2270; J2405